=== PATIENT | female | born 1945 | race Caucasian/White ===

== ENCOUNTER 2017-11-06 15:12 | Emergency (ER) | payer MEDICARE, OTHER ==
--- NOTE | 2017-11-06 15:59 | CT ---
CT OF THE BRAIN WITHOUT CONTRAST; Date: 11/06/17 INDICATION: History of fall. COMPARISON: MRI of the brain dated 05/29/14. FINDINGS: No acute infarct, hemorrhage, or hydrocephalus is present. The septum pellucidum and third ventricle are midline. Skull and extracranial soft tissues are within normal limits. There is mucosal thickenin g within the paranasal sinuses. IMPRESSION: 1. No acute intracranial abnormality. 2. Mild paranasal sinus disease. POS: [facility]
--- NOTE | 2017-11-06 16:02 | RAD ---
SINGLE VIEW PELVIS: Date: 11/06/17 INDICATION: Fall with pelvic pain. FINDINGS: No comparisons of the pelvis or right hip available. No acute fracture or subluxation is evident. SI joints appear within normal limits. There is a 3.2 cm mixed sclerotic and lucent lesion seen involving the proximal right femoral metaphyseal region. This may reflect a small fibroosseous lesion. No definite aggressive features are noted. IMPRESSION: 1. No acute fracture or subluxation. 2. Well circumscribed mixed lucent sclerotic lesion in proximal femoral metaphysis may reflect a sma ll fibroosseous lesion. As a conservative measure, correlate for the clinical exam for any pain withi n this location. A follow-up bone scan may be helpful to evaluate bone turnover activity related with this lesion. If comparison radiographs of the pelvis or right hip are available, these may be helpfu l to document stability. POS: [facility]
--- NOTE | 2017-11-06 16:13 | RAD ---
LEFT HIP 2 VIEWS: Date: 11/06/17 HISTORY: Fell with injury to left hip. FINDINGS: The femoral head and neck appear intact. Left hemipelvis appears intact. IMPRESSION: No evidence of acute fracture. POS: [facility]
--- NOTE | 2017-11-06 16:14 | RAD ---
LEFT HUMERUS 2 VIEWS: Date: 11/06/17 HISTORY: Fell with injury to left shoulder. FINDINGS: Slightly comminuted fracture involving the humeral head and neck. Mid and distal humerus is intact. IMPRESSION: Fracture proximal humerus. POS: [facility]
--- NOTE | 2017-11-06 16:17 | RAD ---
LEFT SHOULDER 3 VIEWS: Date: 11/06/17 HISTORY: Trauma. COMPARISON: None. FINDINGS: There is a mildly comminuted fracture of the left humeral head/neck extending to lesser and greater t uberosities. There is displacement of the greater tuberosity over 1.0 cm. No angulation over 45 degre es. IMPRESSION: Near two part fracture of the proximal humerus with fracture extending to the lesser and greater tube rosities with over 1.0 cm displacement of the greater tuberosity. No significant abnormal angulation. POS: [facility]
[2017-11-06] MEDS ORDERED: Morphine 4 MG/ML VIAL ONE (17:30)
[2017-11-06] MEDS ORDERED: Ketorolac Tromethamine 30 MG/ML VIAL ONE (17:30)
== END 2017-11-06 17:51 | disposition home or self-care (01) ==
LOC: ERS 15:12
DX: S42.295A Other nondisplaced fracture of upper end of left humerus, initial encounter for closed fracture (principal); S00.03XA Contusion of scalp, initial encounter; S30.0XXA Contusion of lower back and pelvis, initial encounter; R22.2 Localized swelling, mass and lump, trunk; K21.9 Gastro-esophageal reflux disease without esophagitis; E78.5 Hyperlipidemia, unspecified; J44.9 Chronic obstructive pulmonary disease, unspecified; Z87.891 Personal history of nicotine dependence; Z79.82 Long term (current) use of aspirin; Z79.899 Other long term (current) drug therapy; W18.09XA Striking against other object with subsequent fall, initial encounter
CPT/HCPCS: 70450; 72170; 96374; 96375; J1885; J2270

== ENCOUNTER 2019-01-31 22:38 | Observation (INO) | payer MEDICARE, OTHER ==
[2019-01-31 23:13] LABS: #Eosinphils 0.1 thou/uL (0.0-0.7); #Lymphocytes 1.7 thou/uL (1.20-3.40); #Monocytes 0.4 thou/uL (0.11-0.59); #Neutrophils 8.3 thou/uL (1.40-6.50); %Basophils 0.1 % (0.0-1.0); %Eosinophils 0.7 % (0.0-10.0); %Lymphocytes 16.2 % (21.0-51.0); %Monocytes 3.6 % (0.0-10.0); %Neutrophils 79.4 % (42.0-75.0); Mean Corpuscular HGB CONC 32.4 g/dL (32.0-36.0); Mean Corpuscular Hemoglobin 30.3 pg (27.0-31.0); Mean Corpuscular Volume 93.4 fL (78.0-98.0); Mean Platelet Volume 7.2 fL (7.4-10.4); Platelet Count 355 thou/uL (130-400); RBC Distribution Width 13.3 % (11.5-14.5); Red Blood Cell (RBC) Count 4.62 mill/uL (4.20-5.40); White Blood Cell (WBC) Count 10.4 thou/uL (4.8-10.8)
[2019-01-31 23:32] LABS: ALT (SGPT) 22 U/L (8-55); AST (SGOT) 30 U/L (5-34); Albumin 3.7 g/dL (3.4-4.8); Alkaline Phosphatase 115 U/L (40-150); Anion Gap 14 mmol/L (10-20); BUN (Urea Nitrogen) 6 mg/dL (9.8-20.1); Bilirubin, Total 0.3 mg/dL (0.2-1.2); Calc. Creatinine Clearance 0 mL/min (70-130); Calcium 8.9 mg/dL (7.8-10.44); Carbon Dioxide 22 mmol/L (23-31); Chloride 102 mmol/L (98-107); Estimated GFR-MDRD 81; Globulin 3.1 g/dL (2.4-3.5); Glucose 109 mg/dL (83-110); Potassium 3.7 mmol/L (3.5-5.1); Protein, Total 6.8 g/dL (6.0-8.3); Sodium 134 mmol/L (136-145)
[2019-02-01] MEDS ORDERED: Acetaminophen 500 MG TAB ONE (01:17)
[2019-02-01 01:35] LABS: Bilirubin Negative (Negative); Blood, Urine Negative (Negative); Clarity CLEAR (Clear); Glucose, Urine (Dipstick) Negative (Negative); Leukocyte Moderate (Negative); Nitrite Negative (Negative); Protein, Urine (Dipstick) Negative (Neg-Trace); Specific Gravity, Urine 1.012 (1.002-1.036); pH, Urine 5.5 (5.0-9.0)
[2019-02-01 01:36] LABS: Bacteria/HPF None Seen HPF (None Seen); Hyaline Casts/LPF 0-3 HYALINE CAST LPF (0-3 Hyaline); Squamous Epithelial 0-3 HPF (0-3); WBC/HPF 21-50 HPF (0-3)
[2019-02-01] MEDS ORDERED: Sodium Chloride 0.45% 1,000 ML IV SCH (04:15)
[2019-02-01 04:56] VITALS: BMI 28.1
[2019-02-01] MEDS ORDERED: PROVENTIL INHALER 6.7 G (200 INHALATIONS) INH PRN (08:46)
[2019-02-01] MEDS ORDERED: Acetaminophen 325 MG TAB PO PRN (08:46)
[2019-02-01] MEDS ORDERED: Ondansetron ODT 4 MG TAB PO PRN (08:46)
[2019-02-01] MEDS ORDERED: hydrALAZINE 20 MG/ML VIAL SLOW IVP PRN (08:46)
[2019-02-01] MEDS ORDERED: Ondansetron PF 4 MG/2 ML Vial IVP PRN (08:46)
[2019-02-01] MEDS ORDERED: Diabetic Tussin 200 MG/10 ML UDCUP PO PRN (08:46)
[2019-02-01] MEDS ORDERED: Cepastat Lozenges 1 LOZ PO PRN (08:46)
--- NOTE | 2019-02-01 08:53 | RAD ---
PORTABLE AP CHEST: Date: 01/31/19 HISTORY: Chest pain. COMPARISON: 04/14/17. FINDINGS: Postsurgical changes related to median sternotomy and cardiac valve replacement again noted. Cardiac silhouette and pulmonary vasculature are within normal limits. Increased interstitial densities are a gain seen throughout the lungs suggesting chronic interstitial lung changes. There is no consolidatio n or pleural fluid seen. A remote fracture deformity of the left humeral neck is seen. No other inter christiano change. IMPRESSION: Chronic lung changes without evidence of an acute cardiopulmonary process. POS: [facility]
--- NOTE | 2019-02-01 09:12 | HP ---
PRIMARY CARE PHYSICIAN: Kamilah Morales MD CHIEF COMPLAINT: Generally not feeling well and fever. HISTORY OF PRESENT ILLNESS: Ms. Dawson is a pleasant 73-year-old female, who has a history of hypertension and previous aortic valve replacement. She says that about a week ago she started feeling tired and weak and generally not feeling well. She went to see her primary care physician, who diagnosed her with a urinary tract infection. She said at that time she was not having any dysuria or frequency, but just had kind of an odor to the urine and it was a bit cloudy. She also noted some nausea and decreased appetite. She was started on Macrobid and says that a couple of days later she started to feel better and in fact, on Thursday, she felt great, but then the following day on Thursday, she has had a temperature of 102.4. She was feeling some pressure about her head as well as some headache and her chest felt cold. She was told that since she has a prosthetic valve that she should not let her temperature get above 100 and due to these concerns, she came to the emergency room. In the ER, she was evaluated and found to have some persistent pyuria, but no significant fever and she is being placed in observation. REVIEW OF SYSTEMS: Essentially negative except for an occasional cough, but there is no shortness of breath. No nausea. No diarrhea. No vomiting. No sore throat. PAST MEDICAL HISTORY: Significant for aortic valve replacement, hyperlipidemia, hypertension, and COPD. PAST SURGICAL HISTORY: She has had right shoulder surgery, bilateral knee replacement, cholecystectomy, and tonsillectomy. ALLERGIES: ALLERGIES ARE TO AUGMENTIN, CODEINE, AND ULTRAM. FAMILY HISTORY: Significant for mother, who had a heart attack and father as well had coronary artery disease. Mother also had a stroke. SOCIAL HISTORY: She is . She is a former smoker. She occasionally drinks and she would like to be a full code. CURRENT MEDICATIONS: Include; 1. Albuterol q.4 hours as needed. 2. Aspirin 81 mg daily. 3. Diltiazem 240 mg daily. 4. Duloxetine 60 mg daily. 5. Breo Ellipta one puff q.p.m. 6. Macrobid 100 mg twice daily. 7. Prilosec 10 mg daily. 8. Requip 2 mg q.p.m. 9. Incruse Ellipta. PHYSICAL EXAMINATION: GENERAL: She is alert and oriented. She appears to be in no acute distress. She is well developed and well nourished. VITAL SIGNS: Blood pressure was 110/55, heart rate 78, respiratory rate of 20, and temperature is 98.5. HEENT: Her pupils are equal, round, and reactive. Extraocular muscles are intact. Her sclerae are anicteric. Throat; there is no erythema. No exudates. NECK: No adenopathy. No bruits. LUNGS: Essentially clear to auscultation. There is no wheezing. No rales. No rhonchi. CARDIOVASCULAR: She had a normal S1 and S2. She had a grade 2/6 systolic murmur. ABDOMEN: Obese. It is soft. It is nontender and nondistended. Positive for bowel sounds. No rebound. No guarding. EXTREMITIES: There is no clubbing or cyanosis. No edema. NEUROLOGICAL: The exam is nonfocal. LABORATORY RESULTS: Sodium 134, potassium 3.7, chloride 102, CO2 is 22, BUN is 6, creatinine 0.71, and glucose is 109. White blood cell count 10.4, hemoglobin 14, hematocrit is 43.2, and platelet count is 355. IMAGING DATA: Chest x-ray, in my reading, heart size is normal. There is some chronic interstitial change, but no discrete infiltrate or effusion. ASSESSMENT AND PLAN: 1. This is a pleasant 73-year-old female, who presents with malaise and fever. Most likely, this represents a viral syndrome. However, she could have an incomplete or partially-treated urinary tract infection. She will be monitored on Oncology. We will place her empirically on Levaquin, which should cover upper respiratory as well as urinary tract infections. Follow up on her cultures and hopefully if she is feeling better tomorrow and is still afebrile, she can likely be discharged home and to follow up on the culture results with Dr. Morales. 2. For hypertension, we will continue her usual home medications. 3. For chronic obstructive pulmonary disease, again continue home medicines as well as p.r.n. nebs. Job ID: [id number]
[2019-02-01] MEDS: Sodium Chloride 0.9% 1,000 ML IV SCH ×2 (09:37→22:35)
[2019-02-01] MEDS: Aspirin Chewable 81 MG TAB PO SCH (09:41)
[2019-02-01] MEDS: DULoxetine 60 MG CAP PO SCH (09:41)
[2019-02-01] MEDS: Ipratropium Bromide 2.5 ml Neb NEB SCH ×2 (13:43→19:14)
[2019-02-01] MEDS: Acetaminophen 325 MG TAB PO PRN (16:06)
[2019-02-01] MEDS: Mometasone/Formoterol 120 PUFF INHALER INH SCH (19:18)
[2019-02-01] MEDS ORDERED: rOPINIRole HCl 2 MG TAB PO SCH (21:00)
[2019-02-01] MEDS ORDERED: Non-Formulary Item 1 EACH (Fluticasone/Vilanterol [Breo Ellipta] 1 PUFF) IH SCH (21:00)
[2019-02-01] MEDS ORDERED: Non-Formulary Item 1 EACH (Umeclidinium Bromide [Incruse Ellipta] 1 PUFF) IH SCH (21:00)
[2019-02-02] MEDS: Acetaminophen 325 MG TAB PO PRN ×2 (00:18→08:54)
[2019-02-02] MEDS: Ipratropium Bromide 2.5 ml Neb NEB SCH ×3 (01:17→13:35)
[2019-02-02] MEDS: Mometasone/Formoterol 120 PUFF INHALER INH SCH (06:16)
[2019-02-02 06:45] LABS: #Basophils 0.1 thou/uL (0.0-0.2); #Eosinphils 0.2 thou/uL (0.0-0.7); #Lymphocytes 2.4 thou/uL (1.20-3.40); #Monocytes 0.4 thou/uL (0.11-0.59); #Neutrophils 7.4 thou/uL (1.40-6.50); %Basophils 0.6 % (0.0-1.0); %Eosinophils 1.8 % (0.0-10.0); %Lymphocytes 23.3 % (21.0-51.0); %Monocytes 3.6 % (0.0-10.0); %Neutrophils 70.7 % (42.0-75.0); Hemoglobin 12.2 g/dL (12.0-16.0); Mean Corpuscular HGB CONC 30.7 g/dL (32.0-36.0); Mean Corpuscular Hemoglobin 28.8 pg (27.0-31.0); Mean Corpuscular Volume 93.9 fL (78.0-98.0); Mean Platelet Volume 7.1 fL (7.4-10.4); Platelet Count 326 thou/uL (130-400); RBC Distribution Width 13.2 % (11.5-14.5); Red Blood Cell (RBC) Count 4.24 mill/uL (4.20-5.40); White Blood Cell (WBC) Count 10.5 thou/uL (4.8-10.8)
[2019-02-02 06:54] LABS: Anion Gap 10 mmol/L (10-20); BUN (Urea Nitrogen) Less than 4 mg/dL (9.8-20.1); Calc. Creatinine Clearance 92 mL/min (70-130); Calcium 8.6 mg/dL (7.8-10.44); Carbon Dioxide 25 mmol/L (23-31); Chloride 106 mmol/L (98-107); Estimated GFR-MDRD Greater than 90; Glucose 99 mg/dL (83-110); Potassium 3.1 mmol/L (3.5-5.1); Sodium 138 mmol/L (136-145)
[2019-02-02 08:41] VITALS: BP 118/57; TEMP 97.9
[2019-02-02] MEDS: DULoxetine 60 MG CAP PO SCH (08:54)
[2019-02-02] MEDS: Aspirin Chewable 81 MG TAB PO SCH (08:54)
[2019-02-02] MEDS ORDERED: Potassium Chloride 20 MEQ TAB PO SCH (11:00)
[2019-02-02] MEDS: Sodium Chloride 0.9% 1,000 ML IV SCH (12:00)
--- NOTE | 2019-02-02 15:02 | DIS ---
DATE OF ADMISSION: 02/01/2019 DATE OF DISCHARGE: 02/02/2019 PRIMARY CARE PHYSICIAN: Kamilah Morales MD DISCHARGE DIAGNOSES PRIMARY: 1. Urinary tract infection. 2. Suspected viral upper respiratory tract infection. SECONDARY DISCHARGE DIAGNOSES: History of chronic obstructive pulmonary disease, aortic valve replacement, dyslipidemia, and hypertension. DISCHARGE MEDICATIONS: Discharge medications remain the same as admission medication. The patient's antibiotic is changed from Macrobid to levofloxacin. She will take levofloxacin 500 mg p.o. daily for 5 more days and take Florastor once daily for 10 days with it. P.R.N. Zofran is also prescribed. PROCEDURES DONE IN THE HOSPITAL: Chest x-ray, which did not show any acute changes. CONSULTATIONS: None. CONDITION: At the time of discharge, stable and improved. PHYSICAL EXAMINATION: VITAL SIGNS: On the day of discharge; blood pressure 118/57, saturating 94% on room air, and temperature 97.9. GENERAL: No acute distress. Awake, alert, and oriented x3. CHEST: Clear to auscultation bilaterally. ABDOMEN: Soft, nontender, and nondistended. EXTREMITIES: Free of any cyanosis, clubbing, or edema. HEART: Rate and rhythm are regular. HISTORY OF PRESENTING ILLNESS AND HOSPITAL COURSE: Ms. Dawson is a 73-year-old pleasant female with past medical history as outlined above, who presented to the emergency room for complaints of fever, malaise, headache, and nausea. She was recently prescribed Macrobid when she was found to have a urinary tract infection in the outpatient setting. Upon presentation, she was hemodynamically stable. Chest x-ray was unremarkable. Blood work was unrevealing and within normal range. Her urine did have some pyuria, so she was admitted for possible partially treated urinary tract infection with or without viral upper respiratory tract infection. The patient was treated with IV levofloxacin and she got 2 doses in the hospital. Her urine culture and blood culture preliminary are negative so far. Her 1 out of 2 blood culture is growing coag-negative staph and enterococcus faecium. This is thought most likely secondary to contamination as the same sample is growing coagulase-negative Staphylococcus, which is normally a contaminant. At this time, the patient will be discharged on levofloxacin for a total of 7 days and will follow with primary care physician for the followup of the final results of the blood culture. She is instructed to come back to the hospital if her symptoms reoccur or she does not feel well. Currently, she is feeling somewhat better and is eager to go home. Job ID: [id number]
--- NOTE | 2019-02-05 09:27 | EKG ---
Test Reason : Blood Pressure : / mmHG Vent. Rate : 120 BPM Atrial Rate : 120 BPM P-R Int : 148 ms QRS Dur : 066 ms QT Int : 310 ms P-R-T Axes : 061 010 069 degrees QTc Int : 438 ms Sinus tachycardia Possible Left atrial enlargement Borderline ECG Confirmed by DIXIE BOOKER ([id number]), slot editor SAM MONET ([id number]) on 02/05/2019 9:26:29 AM Referred By: Confirmed By:DIXIE BOOKER
== END 2019-02-02 13:30 | disposition home or self-care (01) ==
LOC: ERS 22:38 → ONC 02-01 04:04
PROVIDERS: ADMIT Internal Medicine; ATTEND Internal Medicine
DX: N39.0 Urinary tract infection, site not specified (principal); E78.5 Hyperlipidemia, unspecified; J44.9 Chronic obstructive pulmonary disease, unspecified; Z87.891 Personal history of nicotine dependence; Z96.653 Presence of artificial knee joint, bilateral; Z95.2 Presence of prosthetic heart valve; Z90.89 Acquired absence of other organs; Z90.49 Acquired absence of other specified parts of digestive tract; Z88.1 Allergy status to other antibiotic agents; Z88.5 Allergy status to narcotic agent; Z88.8 Allergy status to other drugs, medicaments and biological substances; Z79.51 Long term (current) use of inhaled steroids; Z79.82 Long term (current) use of aspirin; Z79.2 Long term (current) use of antibiotics; Z79.899 Other long term (current) drug therapy
CPT/HCPCS: 36415; 71045; 80048; 80053; 81003; 81015; 83605; 84484; 85025; 87040; 87077; 87086; 87149; 87186; 87804; 93005; 94640; 96361; 96365; 96366; 96367; G0378; J1956

== ENCOUNTER 2019-02-04 21:35 | Inpatient (IN) | payer MEDICARE, OTHER ==
--- NOTE | 2019-02-04 22:20 | RAD ---
AP VIEW CHEST: 02/04/19 HISTORY: Fever. AP view chest is obtained on 02/04/19. COMPARISON: Comparison made to previous exam from 01/31/19. Sternotomy wires seen. Diffuse chronic interstitial changes seen throughout the lung parenchyma. Some areas of apical pleura l thickening seen on the right. No evidence of acute intrathoracic changes or abnormalities seen. Old healed proximal left humeral fracture deformity is present. A prosthetic cardiac valve is seen. IMPRESSION: No acute intrathoracic abnormality seen. POS: [facility]
[2019-02-04 22:21] LABS: Hemoglobin 12.5 g/dL (12.0-16.0); Mean Corpuscular HGB CONC 33.2 g/dL (32.0-36.0); Mean Corpuscular Hemoglobin 31.1 pg (27.0-31.0); Mean Corpuscular Volume 93.7 fL (78.0-98.0); Mean Platelet Volume 6.9 fL (7.4-10.4); Platelet Count 391 thou/uL (130-400); RBC Distribution Width 13.5 % (11.5-14.5); Red Blood Cell (RBC) Count 4.03 mill/uL (4.20-5.40)
[2019-02-04 22:41] LABS: Band 20 % (5-11); Eosinophils 1 % (0-10); Lymphocytes 6 % (21-51); MDiff Complete? YES; Monocytes 1 % (0-10); Neutrophil 72 % (42-75)
[2019-02-04 22:42] LABS: ALT (SGPT) 42 U/L (8-55); AST (SGOT) 63 U/L (5-34); Albumin 3.2 g/dL (3.4-4.8); Alkaline Phosphatase 157 U/L (40-150); Anion Gap 13 mmol/L (10-20); BUN (Urea Nitrogen) 12 mg/dL (9.8-20.1); Bilirubin, Total 0.4 mg/dL (0.2-1.2); Calc. Creatinine Clearance 0 mL/min (70-130); Calcium 8.5 mg/dL (7.8-10.44); Carbon Dioxide 24 mmol/L (23-31); Chloride 100 mmol/L (98-107); Estimated GFR-MDRD 62; Globulin 3.5 g/dL (2.4-3.5); Glucose 116 mg/dL (83-110); Potassium 3.2 mmol/L (3.5-5.1); Protein, Total 6.7 g/dL (6.0-8.3); Sodium 134 mmol/L (136-145)
[2019-02-04] MEDS ORDERED: Piperacillin/Tazobactam 4.5 GM VIAL ONE (23:22)
[2019-02-04 23:25] LABS: Bilirubin Small (Negative); Blood, Urine Negative (Negative); Clarity CLOUDY (Clear); Glucose, Urine (Dipstick) Negative (Negative); Leukocyte Moderate (Negative); Nitrite Negative (Negative); Protein, Urine (Dipstick) Trace mg/dL (Neg-Trace); Specific Gravity, Urine 1.016 (1.002-1.036); Urobilinogen 0.2 mg/dL (0.2-1.0); pH, Urine 5.5 (5.0-9.0)
[2019-02-04 23:28] LABS: Pathc Cast-AUWi Flag 6.66 (0-2.49)
[2019-02-04 23:37] LABS: Bacteria/HPF Rare-Few HPF (None Seen); Hyaline Casts/LPF 0-3 HYALINE CAST LPF (0-3 Hyaline); Manual Microscopic Reviewed? No Path Casts Seen; RBC/HPF 0-3 HPF (0-3); Transitional Epithelial 0-3 HPF (0-3)
[2019-02-04] MEDS ORDERED: NS 0.9% w/ 40 MEQ KCL 1,000 ML IV SCH (23:45)
[2019-02-05] MEDS ORDERED: Acetaminophen 325 MG TAB ONE (01:19)
[2019-02-05 02:06] VITALS: BMI 25.7
[2019-02-05] MEDS ORDERED: PROVENTIL INHALER 6.7 G (200 INHALATIONS) INH PRN (02:36)
[2019-02-05 02:37] LABS: Lactic Acid 3.3 mmol/L (0.5-2.2)
[2019-02-05] MEDS ORDERED: Ondansetron ODT 4 MG TAB PO PRN (02:37)
[2019-02-05] MEDS ORDERED: Acetaminophen 325 MG TAB PO PRN (02:38)
[2019-02-05] MEDS ORDERED: rOPINIRole HCl 2 MG TAB PO SCH (02:45)
[2019-02-05] MEDS ORDERED: Prevnar 13-Val Conj/PF 0.5 ML SYRINGE IM ONE (03:00)
[2019-02-05] MEDS: Gentamicin Sulfate 300 MG in Sodium Chloride 0.9% 100 ML IVPB SCH (03:32)
--- NOTE | 2019-02-05 04:04 | HP ---
CHIEF COMPLAINT: Fever. HISTORY OF PRESENT ILLNESS: This patient is a 73-year-old female, who was recently seen at this facility. Initially, she came on 02/01 with fever and generally not feeling well. She went to see her primary care physician and was diagnosed with urinary tract infection and was placed on Macrobid. She started feeling better, but subsequently developed a temperature of 102.4 and was feeling some pressure in her head along with some headache. The patient has been told by her intervention manager that she should come to the hospital anytime she has a significant fever. Therefore, she presented to the emergency department. She had some persistent evidence of urinary tract infection and was placed on observation on IV antibiotics. Blood cultures were obtained from the emergency department, one of which was negative and the other of which grew a coagulase negative Staphylococcus as well as an Enterococcus, was felt to be likely contaminant as well. The patient remained afebrile and her white count remained at 10.5 with a normal differential. Therefore, the patient was felt to be stable for discharge to home. She was discharged on p.o. Levaquin, which she has been taking. However, last night, the patient developed significant fever, chills, nausea, and vomiting, along with her headache, and so she presented back to the hospital today after she slept most of the day. She denies any other specific symptoms consistent with infection. REVIEW OF SYSTEMS: The patient notes that she does have a little bit of urinary urgency, which she has not had in the past. She feels a little pressure in her head. She reports intermittent headaches and chronic pain in her neck, which she associates to arthritic-type symptoms, but no new stiffness. All other systems were reviewed and all pertinent positives and negatives noted in the history of present illness. PAST MEDICAL HISTORY: Notable for prosthetic aortic valve, hyperlipidemia, hypertension, COPD. PAST SURGICAL HISTORY: Aortic valve replacement in 2013, right shoulder surgery, bilateral knee replacements, cholecystectomy, tonsillectomy. FAMILY HISTORY: Mother had a heart attack. Father also had coronary artery disease. Her mother also had a stroke. SOCIAL HISTORY: The patient is . She is a former smoker. Occasionally drinks. She is full code. is her surrogate decision maker. ALLERGIES: AUGMENTIN, CODEINE, ULTRAM. CURRENT MEDICATIONS: 1. Levaquin 500 mg daily. 2. Zofran p.r.n. 3. Florastor 250 daily. 4. Requip 2 mg at bedtime. 5. Aspirin 81 mg daily. 6. Albuterol HFA p.r.n. 7. Breo Ellipta one inhalation every evening. 8. Incruse Ellipta one inhalation every evening. 9. Duloxetine 60 mg daily. 10. Omeprazole 10 mg daily. 11. Diltiazem 240 mg daily. PHYSICAL EXAMINATION: VITAL SIGNS: Temperature 99.2, pulse 110, respirations 20, O2 saturation 98% on room air, blood pressure 95/42 up to 118/57. GENERAL APPEARANCE: Age-appropriate female, in no distress. She is very pleasant, awake, alert, oriented, cooperative. HEENT: PERRL. No OP lesions. Denture is in place. NECK: Supple and symmetric without lymphadenopathy, JVD, or carotid bruits. HEART: Regular with loud 2/6 murmur at the left upper sternal border and into the apex. LUNGS: Clear to auscultation bilaterally with good chest wall expansion and air exchange. ABDOMEN: Soft, nontender, and nondistended. Positive bowel sounds. No masses. No organomegaly. EXTREMITIES: No cyanosis, clubbing, or edema. SKIN: Warm and dry with no lesions or rashes. NEUROLOGIC: The patient appears grossly intact. Moving all extremities spontaneously with no evidence of focal deficits. PSYCH: The patient has normal affect and behavior. LABORATORY DATA: White count 24,000, hemoglobin 12.5, platelets 391, 72 segs, 20 bands, 6 lymphocytes. Sodium 134, potassium 3.2, chloride 100, CO2 is 24, BUN 12, creatinine 0.9, glucose 116, lactic acid 3.6, calcium 8.5. AST 63, alkaline phosphatase 157. Urinalysis; small urobilinogen, moderate leukocyte esterase, 0 to 2 red cells, greater than 50 white cells, 11 to 20 squamous epithelial cells, rare to few bacteria seen. Flu screen, negative. IMAGING STUDIES: Chest x-ray, negative. IMPRESSION AND PLAN: 1. Sepsis. The patient has tachycardia with systemic symptoms with nausea, vomiting, and white count of 24,000 consistent with sepsis. Source is not clear. Urine is not convincing for infection. Chest x-ray is clear and she has no other overwhelming symptoms to guide the potential source. She did recently have this Enterococcus avium on the blood culture, which was initially thought to be a contaminant. However, at this point, we do consider that as a true potential pathogens. We will continue the vancomycin, add the gentamicin, and continue with IV fluids and follow up on most recent blood cultures given her prosthetic aortic valve. We will obtain an echocardiogram, cannot completely rule out urinary tract as a potential source. She is having some urinary urgency, which is new for her. Pending her clinical course, may need imaging of the kidneys and collecting system. 2. History of bioprosthetic aortic valve, stable. 3. Hypertension. Continue with her usual home diltiazem dose. 4. History of restless legs syndrome. Continue on the 2 mg of Requip. 5. History of smoking history, it looks like some chronic obstructive pulmonary disease by history. We will continue with albuterol. Job ID: [id number]
[2019-02-05] MEDS: Ipratropium Bromide 2.5 ml Neb NEB SCH ×3 (07:27→18:52)
[2019-02-05] MEDS: Mometasone/Formoterol 120 PUFF INHALER INH SCH ×2 (07:29→19:08)
[2019-02-05] MEDS: Enoxaparin Sodium 40 MG/0.4 ML SYRINGE SC SCH (08:07)
[2019-02-05] MEDS: DULoxetine 60 MG CAP PO SCH (08:08)
[2019-02-05] MEDS: Saccharomyces boulardii 250 MG CAP PO SCH (08:08)
[2019-02-05] MEDS: Aspirin 81 mg Enteric Coated Tablet PO SCH (08:08)
[2019-02-05 09:22] LABS: #Eosinphils 0.1 thou/uL (0.0-0.7); #Monocytes 0.3 thou/uL (0.11-0.59); #Neutrophils 14.6 thou/uL (1.40-6.50); %Eosinophils 0.8 % (0.0-10.0); %Lymphocytes 6.3 % (21.0-51.0); %Monocytes 1.6 % (0.0-10.0); %Neutrophils 91.3 % (42.0-75.0); Hemoglobin 11.5 g/dL (12.0-16.0); Mean Corpuscular HGB CONC 32.4 g/dL (32.0-36.0); Mean Corpuscular Hemoglobin 30.8 pg (27.0-31.0); Mean Corpuscular Volume 95.2 fL (78.0-98.0); Platelet Count 315 thou/uL (130-400); RBC Distribution Width 13.5 % (11.5-14.5); Red Blood Cell (RBC) Count 3.75 mill/uL (4.20-5.40)
[2019-02-05 09:43] LABS: Anion Gap 10 mmol/L (10-20); BUN (Urea Nitrogen) 12 mg/dL (9.8-20.1); Calc. Creatinine Clearance 75 mL/min (70-130); Calcium 7.5 mg/dL (7.8-10.44); Carbon Dioxide 21 mmol/L (23-31); Chloride 109 mmol/L (98-107); Estimated GFR-MDRD 84; Glucose 105 mg/dL (83-110); Potassium 3.8 mmol/L (3.5-5.1); Sodium 136 mmol/L (136-145)
[2019-02-05] MEDS ORDERED: ISOVUE-370 76%-LOCM 1 ML ONE (13:00)
--- NOTE | 2019-02-05 16:11 | CON ---
DATE OF CONSULTATION: HISTORY OF PRESENT ILLNESS: Shila Dawson is a 73-year-old woman with a history of aortic valve replacement, who presents with fevers and chills. The patient was seen in 2012 and was diagnosed with severe aortic stenosis. The patient subsequently underwent aortic valve replacement. She re-presented in 2013 with fevers and chills. She underwent a JOSEPH which revealed no evidence of any vegetations. The patient subsequently has been doing well until she presented again with recurrent fevers and chills. She has had extremely high temperature of up to 102. The patient went to the Emergency Room and was placed on antibiotics. She was sent home and continued to have fevers and chills. She was admitted for further evaluation. PAST MEDICAL HISTORY: 1. Status post aortic valve replacement. 2. COPD. 3. Hypercholesterolemia. SURGERIES: Aortic valve replacement, cholecystectomy, tonsillectomy, shoulder surgery,and knee surgery. SOCIAL HISTORY: Former smoker. FAMILY HISTORY: No strong family history of heart disease. ALLERGIES: CODEINE AND AUGMENTIN. MEDICATIONS ON ADMISSION: 1. Aspirin 81 daily. 2. Cardizem 240 daily. 3. Prilosec 10 daily. 4. Requip 2 mg daily. 5. Nebulizers. REVIEW OF SYSTEMS: Ten point system otherwise unremarkable. PHYSICAL EXAMINATION: GENERAL: Anxious woman in mild distress. VITAL SIGNS: Blood pressure of 102/59, heart rate 110. NECK: Showed no jugular venous distention. LUNGS: Clear to auscultation. HEART: Regular rate and rhythm. Normal S1, S2. 1/6 systolic murmur. ABDOMEN: Nondistended. EXTREMITIES: Showed no edema. VASCULAR: Radial pulses 2+. LABORATORY DATA: White blood cell count 16.0, hemoglobin 11.5, hematocrit was 35.7, platelets 315. Sodium was 136, potassium 3.8, chloride 109, bicarbonate 21, BUN 12, creatinine 0.69, glucose 105. Her EKG revealed normal sinus rhythm, normal ECG. IMPRESSION: 1. Sepsis. 2. History of aortic valve replacement. 3. Chronic obstructive pulmonary disease. 4. History of hypertension. This patient presents with recurrent fevers and chills. She had a recent blood culture that showed Staphylococcus \enterococcus avium. This patient presents with sepsis. She has been on multiple antibiotics. I would be concerned that she could have culture negative endocarditis. Her echocardiogram did not reveal evidence of vegetation. We would recommend consultation with Infectious Disease. We will follow this patient with you through her hospitalization. Job ID: [id number] MTDD
--- NOTE | 2019-02-05 17:07 | PRG ---
DATE OF SERVICE: 02/05/2019 SUBJECTIVE: The patient is a 73-year-old female with past medical history significant for prosthetic aortic valve replacement in 2012, hyperlipidemia, hypertension, and COPD, who presents with recurrent fever, headache, and body aches. The patient has been admitted with sepsis, with one culture positive for coagulase-negative Staph as well as Enterococcus, which is likely to felt to be a contaminant. The patient's white count has trended down with IV antibiotics, she continues to complain of mild cough. She denies any chest pain or shortness of breath. She does complain of mild nausea. She continues to have body aches. OBJECTIVE: VITAL SIGNS: Temperature 98.2, pulse is 111, respirations are 19, O2 saturation is 93% on room air. GENERAL: The patient is in no acute distress. Resting comfortably in bed. HEENT: Head is normocephalic, atraumatic. Her mucous membranes are moist. NECK: No JVD. No carotid bruits. No lymphadenopathy. CV: S1, S2. No appreciable murmur. Regular rhythm. Mildly tachycardic. LUNGS: Regular respiratory rate and pattern, no audible crackles, wheezes, or rhonchi. ABDOMEN: Soft. Positive bowel sounds. EXTREMITIES: No edema. +2 DP pulses bilaterally. SKIN: Warm and dry with no rashes or abrasions. NEUROLOGIC: The patient is alert, awake, and oriented. Cranial nerves 2 through 12 intact. Nonfocal. LABORATORY DATA: White blood cell count 16, hemoglobin 11.5, hematocrit 35.7. Sodium 136, potassium 3.8, chloride 109, carbon dioxide 21, creatinine 0.69. ASSESSMENT: 1. Sepsis. The source remains unclear at this time. Blood and urine cultures are pending. 2. Transcatheter aortic valve replacement with prosthetic valve in 2012. 3. Chronic obstructive pulmonary disease. 4. Hypertension. 5. Restless legs syndrome. PLAN: Dr. Beth has consulted and appreciated his input. Echocardiogram performed this hospitalization did not reveal any evidence of vegetation. We will obtain Infectious Disease consult with Dr. Metz and await recommendations. For now, we will continue with vancomycin and gentamicin. Continue IV fluids and supportive care. Care discussed with Dr. Jacome, who agrees with above. Job ID: [id number] [facility]
[2019-02-05] MEDS: rOPINIRole HCl 2 MG TAB PO SCH (21:06)
[2019-02-05] MEDS: HYDROcodone/Acetaminophen 7.5/325 mg Tablet PO PRN (21:06)
--- NOTE | 2019-02-05 21:49 | RAD ---
AP VIEW CHEST: 02/05/19 HISTORY: Shortness of breath. AP view chest obtained on 01/26/19. Comparison made to previous exam from 02/04/19. AP view chest demonstrates sternotomy wires seen. A prosthetic aortic valve is seen. Pulmonary vascular congestion seen. There are prominent reticulonodular markings throughout the lungs . This appears to be slightly more prominent than on the previous exam from one day earlier. IMPRESSION: Increased reticulonodular markings throughout the lungs. There may be some component of interstitial edema. POS: [facility]
[2019-02-05] MEDS ORDERED: Sodium Chloride 0.9% 1,000 ML IV SCH ×2 (22:00)
--- NOTE | 2019-02-05 22:01 | PDOC.EVN ---
Event Note - Event Note Event Note: RN called due to persistent tachycardia - HR >130s. EKG HR [address] Started gentle IV hydration. CXR - ?infiltrate vs edema. Will get CT to r/o PE
[2019-02-05 22:06] LABS: Anion Gap 11 mmol/L (10-20); BUN (Urea Nitrogen) 9 mg/dL (9.8-20.1); Calc. Creatinine Clearance 80 mL/min (70-130); Calcium 8.2 mg/dL (7.8-10.44); Carbon Dioxide 23 mmol/L (23-31); Chloride 103 mmol/L (98-107); Estimated GFR-MDRD 90; Glucose 102 mg/dL (83-110); Magnesium 1.4 mg/dL (1.6-2.6); Potassium 3.5 mmol/L (3.5-5.1); Sodium 133 mmol/L (136-145)
[2019-02-05 22:09] LABS: Hemoglobin 11.8 g/dL (12.0-16.0); Mean Corpuscular HGB CONC 33.4 g/dL (32.0-36.0); Mean Corpuscular Hemoglobin 31.5 pg (27.0-31.0); Mean Corpuscular Volume 94.2 fL (78.0-98.0); Mean Platelet Volume 6.9 fL (7.4-10.4); Platelet Count 335 thou/uL (130-400); RBC Distribution Width 13.5 % (11.5-14.5); Red Blood Cell (RBC) Count 3.74 mill/uL (4.20-5.40); White Blood Cell (WBC) Count 14.4 thou/uL (4.8-10.8)
[2019-02-05 22:11] LABS: Band 27 % (5-11); Lymphocytes 12 % (21-51); MDiff Complete? YES; Monocytes 3 % (0-10); Neutrophil 58 % (42-75)
--- NOTE | 2019-02-05 22:46 | CT ---
CONTRAST ENHANCED CTA CHEST: 02/05/19 HISTORY: Persistent tachycardia. Evaluate for pulmonary emboli. Contrast enhanced CTA of the chest is performed. 2D and 3D reconstructed images performed on an [employer] 3D workstation. CTA images demonstrate small bilateral pleural effusions. Prominent lung interstitial fibrotic change s seen throughout the upper and lower lobes. There is some thickening seen in the distal esophagus co ncerning for esophagitis. A sliding type hiatal hernia is present. There is a prosthetic aortic valve in place. No evidence of filling defects seen in the pulmonary arteries to suggest pulmonary emboli. There does appear to be some paratracheal and subcarinal lymphadenopathy. IMPRESSION: 1. Small bilateral pleural effusions. 2. Mediastinal lymphadenopathy. POS: [facility]
[2019-02-05] MEDS: Sodium Chloride 0.9% 500 ML IV SCH (22:55)
[2019-02-05] MEDS ORDERED: Vancomycin HCl 1 GM in Premix Bag 1 BAG IVPB SCH (23:59)
[2019-02-06] MEDS: Ipratropium Bromide 2.5 ml Neb NEB SCH ×5 (00:38→23:28)
[2019-02-06] MEDS: Gentamicin Sulfate 300 MG in Sodium Chloride 0.9% 100 ML IVPB SCH (05:05)
[2019-02-06 05:24] LABS: #Eosinphils 0.6 thou/uL (0.0-0.7); #Lymphocytes 2.6 thou/uL (1.20-3.40); #Monocytes 0.5 thou/uL (0.11-0.59); #Neutrophils 9.9 thou/uL (1.40-6.50); %Basophils 0.3 % (0.0-1.0); %Eosinophils 4.1 % (0.0-10.0); %Lymphocytes 18.8 % (21.0-51.0); %Monocytes 3.6 % (0.0-10.0); %Neutrophils 73.2 % (42.0-75.0); Hemoglobin 11.7 g/dL (12.0-16.0); Mean Corpuscular HGB CONC 31.9 g/dL (32.0-36.0); Mean Corpuscular Hemoglobin 30.6 pg (27.0-31.0); Mean Corpuscular Volume 95.6 fL (78.0-98.0); Mean Platelet Volume 7.1 fL (7.4-10.4); Platelet Count 334 thou/uL (130-400); RBC Distribution Width 13.6 % (11.5-14.5); Red Blood Cell (RBC) Count 3.83 mill/uL (4.20-5.40); White Blood Cell (WBC) Count 13.6 thou/uL (4.8-10.8)
[2019-02-06 05:55] LABS: Anion Gap 13 mmol/L (10-20); BUN (Urea Nitrogen) 8 mg/dL (9.8-20.1); Calc. Creatinine Clearance 92 mL/min (70-130); Calcium 8.3 mg/dL (7.8-10.44); Carbon Dioxide 20 mmol/L (23-31); Chloride 105 mmol/L (98-107); Estimated GFR-MDRD Greater than 90; Glucose 92 mg/dL (83-110); Potassium 3.6 mmol/L (3.5-5.1); Sodium 134 mmol/L (136-145)
[2019-02-06] MEDS: Mometasone/Formoterol 120 PUFF INHALER INH SCH ×2 (07:24→19:01)
[2019-02-06] MEDS: DULoxetine 60 MG CAP PO SCH (09:00)
[2019-02-06] MEDS: Aspirin 81 mg Enteric Coated Tablet PO SCH (09:00)
[2019-02-06] MEDS: Enoxaparin Sodium 40 MG/0.4 ML SYRINGE SC SCH (09:00)
[2019-02-06] MEDS: Sodium Chloride 0.9% 500 ML IV SCH ×2 (09:00→17:39)
[2019-02-06] MEDS: Saccharomyces boulardii 250 MG CAP PO SCH (09:01)
[2019-02-06] MEDS ORDERED: Fluconazole 100 MG TAB PO SCH (11:40)
--- NOTE | 2019-02-06 13:03 | PRG ---
DATE OF SERVICE: 02/06/2019 SUBJECTIVE: The patient was seen and examined at the bedside. Her is present in the room during my visit. She feels tired. She does not have much appetite. She noticed increased shortness of breath for the last few days with some increased amount of seeing clear phlegm. OBJECTIVE: VITAL SIGNS: Blood pressure is 113/53, pulse is 101, temperature is 98.4, respiratory rate is 93% on 2 L by nasal cannula. GENERAL: She looks tired and sick. HEENT: Her eyes are PERRLA. Sclerae are nonicteric. Oral mucosa is covered with thrush. NECK: Supple. LUNGS: Few crackles at the right base. HEART: S1 and S2. Slightly tachycardic. No S3. No S4. There is a systolic murmur at the aortic valve area in the right upper and sternal border. ABDOMEN: Soft and nontender. Bowel sounds are present. No organomegaly. EXTREMITIES: No clubbing, cyanosis, or edema. NEUROLOGICAL: She follows my commands. She moves all four extremities. There is no any motor or sensory deficits present. Cranial nerves are intact. LABORATORY DATA: Labs showed white count of 13.6, hemoglobin 11.7, hematocrit 36.6, platelet count is 334,000, bands 27 from yesterday. Chemistry; sodium of 134, potassium 3.6, chloride 105, CO2 of 20, BUN 8, creatinine 0.58, glucose 92, calcium 8.3. BNP was 345.9 yesterday. First set of troponin is 0.034. Magnesium was 1.4. DIAGNOSTIC DATA: Chest x-ray showed, this is from last night, increased reticular nodular marking throughout the lungs with possible some interstitial edema. A CT angiogram showed small bilateral pleural effusions and mediastinal lymphadenopathy. Echocardiogram showed LVEF of 55% to 60%, normal size left atrium, normal left ventricle in size, normal functioning bioprosthetic valve in aortic position, mild mitral regurgitation, and mild tricuspid regurgitation. IMPRESSION: 1. Sepsis the source is not clear. She was treated it with antibiotic prior to this admission for urinary tract infection and she had culture positive for enterococcus avium and Staphylococcus, which was probably contaminant. The patient is on vancomycin and gentamicin. There was some suspicion of possible endocarditis. ID consultants to see the patient today. 2. History of bioprosthetic aortic valve, stable. 3. Hypertension. 4. History of restless legs syndrome. 5. History of smoking. 6. Chronic obstructive pulmonary disease. PLAN: As mentioned above, continue IV antibiotics. ID consult with Dr. Metz. Serial CBCs. Her urine look suspicious for infection, but urine culture preliminary is negative. We will continue DVT prophylaxis with Lovenox and SCDs. Job ID: [id number]
[2019-02-06] MEDS ORDERED: Iopamidol 370 76% 100 ML VIAL ONE (13:07)
[2019-02-06] MEDS: HYDROcodone/Acetaminophen 7.5/325 mg Tablet PO PRN ×2 (16:11→20:07)
[2019-02-06 18:01] LABS: Troponin I 0.015 ng/mL (< 0.028)
--- NOTE | 2019-02-06 18:57 | CT ---
CONTRAST ENHANCED CT OF THE ABDOMEN AND PELVIS: History: Fever of unknown origin. Technique: Contrast enhanced images of the abdomen and pelvis obtained after administration of IV and oral contrast. FINDINGS: Small bilateral pleural effusions seen. There appears to be some areas of increased interstitial mellissa ings compatible with scarring in both lung bases. The liver and spleen are unremarkable. The gallbladder has been surgically removed. The pancreas is u nremarkable. Adrenal glands are unremarkable. Areas of cortical thinning seen in the upper pole of the right kidney. No evidence of hydronephrosis is seen. No evidence of periaortic lymphadenopathy is seen. Atherosclerotic calcifications seen in the infrarenal abdominal aorta. No dilated loops of small bowel is seen. A moderate amount of stool is seen in the colon. The appendi x definitively is not visualized. Mid and lower lumbar disc space height loss with changes of spondylosis seen. No definite evidence of pelvic masses or lesions seen. A small sliding type hiatal hernia is present. IMPRESSION: Small bilateral pleural effusions. POS: [facility]
[2019-02-06] MEDS: rOPINIRole HCl 2 MG TAB PO SCH (20:07)
[2019-02-06 21:20] LABS: Troponin I 0.015 ng/mL (< 0.028)
--- NOTE | 2019-02-07 06:07 | CON ---
DATE OF CONSULTATION: 02/06/2019 REASON FOR CONSULTATION: Possible sepsis. HISTORY OF PRESENT ILLNESS: Ms. Dawson is a 73-year-old patient who has a history of pulmonary fibrosis/COPD as well as severe aortic stenosis diagnosed in 2012, who underwent bioprosthetic valve replacement that year. In 2013, she was admitted because of fever. Two sets of blood cultures were negative. A transesophageal echocardiogram revealed a ruptured chordae tendineae, but no vegetations along any of the valves. In 2014, she presented with chest discomfort with pleuritic chest pain, mild shortness of breath, as well as cough. She had a CT angio which showed right apex patchy opacity and right basilar opacity as well as left basilar infiltration. She was given empiric antimicrobial therapy and she was discharged on levofloxacin, ropinirole, Breo Ellipta, Flovent, amitriptyline, and albuterol. In 2016, she presented with shortness of breath. She was given antimicrobial therapy and corticosteroids. She did have headaches, which were managed with Depakote and NSAIDs and she was discharged on again levofloxacin and pretty much the same medications as previously noted except for the Depakote that was added to the regimen and a prednisone taper. In January 2019, she presented with fever, headaches, general malaise, and nausea. She had developed some perception of change in the color of her urine, although she did not have any dysuria. She also had general malaise. She had been given Macrobid which she took and initially felt improvement at least in the characteristics of the urine appearance. Subsequently, she developed fever of 102, was given levofloxacin. Cultures have been negative. Blood cultures had Enterococcus avium and coagulase-negative Staphylococcus, which was felt to represent a contaminant, and she was discharged on levofloxacin for 7 days. After discharge, she developed subjective general malaise and fever and was readmitted. She did have headaches associated with it. Physical examination on admission with a temperature 99.5, O2 saturation 95%, pulse 108, BP 102/48. She did not appear in distress and was pain-free when initially seen. Overall exam with clear breath sounds. The heart examination was normal and the abdomen was soft and nontender. The initial lab data with a white cell count of 24,000, hemoglobin 12.5, and platelets 391 with 72% neutrophils, 20% bands, 6% lymphocytes. Chemistry with a sodium 134 , potassium 3.2, creatinine 0.9, AST 63, alkaline phosphatase 157, albumin 3.2. Lactic acid was 3.6. Urinalysis with greater than 50 wbc's. Thus far, microbiology has demonstrated no growth in the urine sample at 12 hours. The influenza A and B was negative. Two sets of blood cultures thus far no growth to date. Ms. Dawson is awake. She does not feel back to baseline. She still has some mild amount of headaches intermittently. No visual symptoms. A little bit of sore throat. No dental pain. No back pain. Not much in terms of coughing episodes at this time. No chest pain. No abdominal pain and no diarrhea. She denies any dysuria. She has chronic pain in the right and left knees, which is a chronic finding and associated with failure of previous arthroplasty sites. No other joint symptoms are noted at this time. No neurological symptoms described by the patient. PAST MEDICAL HISTORY: Includes pulmonary fibrosis, COPD, aortic stenosis with prosthetic valve replacement which was a tissue valve in 2012, history of osteoarthrosis with bilateral knee replacements and right shoulder replacement, cholecystectomy, and tonsillectomy. SOCIAL HISTORY: Drinks weekly. She has a former history of smoking, quit about 10 years before. ALLERGIES: AUGMENTIN WITH RASH; CODEINE, GASTROINTESTINAL SIDE EFFECTS; AND ULTRAM. FAMILY HISTORY: Noncontributory. CURRENT MEDICATIONS: List includes: 1. Tylenol. 2. [place]. 3. Proventil. 4. Ecotrin. 5. Cardizem. 6. Cymbalta. 7. Lovenox. 8. Diflucan. 9. Gentamicin given intravenously. 10. Pantoprazole. 11. Requip. 12. Saccharomyces and vancomycin. PHYSICAL EXAMINATION: VITAL SIGNS: Temperature max 98.6, blood pressure 113/53, pulse 96 to 101, respirations 18, and O2 saturation 92% to 96%. SKIN: The patient has a peripheral IV access. She is voiding in the toilet. No skin lesions are noted. No lymphadenopathy. HEENT: Ocular movements conjugate. The pupils are equal. Oral cavity is not remarkable. NECK: Supple. LUNGS: Faint basilar crackles. HEART: S1, S2. Regular rate without obvious murmurs. ABDOMEN: Soft, not distended or tender. No ascites. No bladder distention. MUSCULOSKELETAL: No joint inflammatory activity. Moves extremities equally with limitations imposed by chronic pain in the right and left knee arthroplasty sites. NEUROLOGIC: Cognitive function appears to be intact. LATEST LABORATORY DATA: White cell count is down to 13.6, hemoglobin 11.7, platelets 334, 73% neutrophils. Sodium 133, creatinine 0.64. Alkaline phosphatase 157 albumin 3.2. Microbiology as discussed above. ASSESSMENT: 1. History of pulmonary fibrosis and chronic obstructive pulmonary disease. 2. Aortic stenosis with aortic valve replacement about 6 years ago with a tissue valve. 3. Abnormal urinalysis, recently treated with Macrodantin, then development of fever, admitted and treated for presumption of pneumonia with levofloxacin and now persistence of fever with more treatment failure and the left shift with bandemia. DISCUSSION: Evidently in a patient with an aortic valve replacement, the concern with prosthetic valve endocarditis is present, but her cultures have been negative and the transthoracic echocardiogram did not show any vegetation. Transthoracic echos have less than optimal sensitivity and depending on the clinical course, a JOSEPH may be needed to reevaluate this if we do not find any other reason for the clinical changes. In terms of the differential diagnosis other than endocarditis with pulmonary infection, an intraabdominal inflammatory process that is not disclosed and pyelonephritis with obstruction were the main concerns. infectious inflammatory processes including vasculitis or other autoimmune phenomenon or malignancy like appearance may have to be considered depending on clinical progress. At this point, we will evaluate a CT of abdomen and pelvis with contrast to see if she has any obstructive lesion in the urinary tract or other intraabdominal inflammatory process including the possibility of a liver abscess. Continue monitoring blood cultures and then decide if she is going to need a JOSEPH or not. Bone and joint inflammatory process is not apparent at this time. Infection in the left knee arthroplasty site is not completely ruled out. It does not appear to be likely a [employer] infection, but in view of the chronic headaches it may have to be considered depending on the progress, but it appears that the headaches are due to temperature elevation. Job ID: [id number] [facility]
[2019-02-07] MEDS: Sodium Chloride 0.9% 500 ML IV SCH ×2 (06:20→21:43)
[2019-02-07] MEDS: Ipratropium Bromide 2.5 ml Neb NEB SCH ×4 (08:12→23:58)
[2019-02-07] MEDS: Mometasone/Formoterol 120 PUFF INHALER INH SCH (08:12)
[2019-02-07] MEDS: DULoxetine 60 MG CAP PO SCH (09:23)
[2019-02-07] MEDS: Aspirin 81 mg Enteric Coated Tablet PO SCH (09:23)
[2019-02-07] MEDS: Enoxaparin Sodium 40 MG/0.4 ML SYRINGE SC SCH (09:23)
[2019-02-07] MEDS: Fluconazole 100 MG TAB PO SCH (09:24)
[2019-02-07] MEDS: HYDROcodone/Acetaminophen 7.5/325 mg Tablet PO PRN ×2 (09:24→21:43)
[2019-02-07] MEDS: Saccharomyces boulardii 250 MG CAP PO SCH (09:24)
--- NOTE | 2019-02-07 10:37 | PRG ---
DATE OF SERVICE: 02/07/2019 SUBJECTIVE: She had a little bit of coughing spells, but not persistent. The thing that bothers her most is the right shoulder and both knees. For some reason, the right shoulder has been hurting more than usual lately. The urine is not bothering her. She has no diarrhea. OBJECTIVE: VITAL SIGNS: With a T-max of 98.2, blood pressure 100/50, pulse 83, respirations 16, and O2 saturation 92%. GENERAL: Awake, alert, a little bit tachypneic, and oriented. LUNGS: With area of focal inspiratory crackles in the right base. HEART: S1 and S2 without obvious murmurs. ABDOMEN: Soft and not distended. EXTREMITIES: Knees with tenderness as noted previously. A little bit of increased warmth of the skin around the knees. Right shoulder does not have swelling or erythema. Range of motion is little bit limited. LABORATORY DATA: White cell count is at 13.6, hemoglobin 11, platelets 334, and 73% neutrophils. Sodium 134 and creatinine 0.58. Blood culture, no growth to-date and urine culture, no growth at 36 hours probably the final. IMAGING STUDIES: Abdomen and pelvis CT, which showed small bilateral pleural effusions, but no other significant findings. Some moderate amount of stool in the colon. Her CT of chest had demonstrated small bilateral pleural effusions, mediastinal lymphadenopathy, some thickening in the distal esophagus concerning for esophagitis. Prominent lung interstitial fibrotic changes throughout the upper and lower lobes and a prostatic aortic valve in place. ASSESSMENT AND DISCUSSION: History of pulmonary fibrosis and chronic obstructive pulmonary disease, aortic stenosis with aortic valve replacement 6 years before, this admission with a tissue valve and abnormal urinalysis. Recently treated with Macrodantin and then developing a fever, which recurred twice. She did have a left shift with bandemia, though the inflammatory process seems to have improved of late. Again, the main concerns here include prostatic valve endocarditis, which in her case would have to be culture negative and an autoimmune phenomenon associated with pulmonary fibrosis. Potential hypersensitivity reaction to Macrodantin, it is not clear how often she has taken Macrodantin in the past, which can be associated with pulmonary fibrosis and organizing pneumonia. We will continue monitoring the cultures. She may need a transesophageal echocardiogram depending on clinical progress. Job ID: [id number]
--- NOTE | 2019-02-07 10:48 | CON ---
DATE OF CONSULTATION: 02/07/2019 REASON FOR CONSULTATION: Fever and shortness of breath. HISTORY OF PRESENT ILLNESS: Ms. Dawson is a 73-year-old female, who I have seen in the office multiple times in the past. She was originally admitted to the hospital on 02/01/2019, with fever. At that time, she was felt to have sepsis from enterococcus avium and a blood culture is not clear whether or not this was a contaminant or not. She was discharged home on the , but developed fever that night, came back into the hospital on the . She still feels rather poorly. She says she is short of breath, but does not have any cough and is not producing any sputum. PAST MEDICAL HISTORY: 1. Chronic obstructive pulmonary disease, on Breo and Incruse Ellipta. 2. Aortic stenosis requiring prosthetic aortic valve replacement. 3. Hyperlipidemia. 4. Hypertension. 5. Interstitial lung changes. PAST SURGICAL HISTORY: 1. Aortic valve replacement. 2. Right shoulder surgery. 3. Bilateral knee replacement. 4. Cholecystectomy. 5. Tonsillectomy. FAMILY MEDICAL HISTORY: Remarkable for coronary artery disease, myocardial infarction, and stroke. SOCIAL HISTORY: She is . She formerly smoked, quit some time ago. Very occasionally drinks alcohol. MEDICATIONS: Prior to admission; 1. Breo Ellipta. 2. Incruse Ellipta. 3. Levaquin. 4. Zofran. 5. Florastor. 6. Requip. 7. Aspirin. 8. Albuterol. 9. Duloxetine. 10. Omeprazole. 11. Diltiazem. ALLERGIES: AUGMENTIN, CODEINE, AND ULTRAM. REVIEW OF SYSTEMS: She has had some diarrhea. No fever, chills, chest pain, hemoptysis, melena, hematochezia, hematuria, or dysuria. PHYSICAL EXAMINATION: VITAL SIGNS: Temperature 98.2, pulse 83, respirations 16, O2 saturation 92% on 2 L, and blood pressure 107/53. NECK: Without adenopathy, JVD, or bruits. HEENT: She has thrush in the tongue. CARDIAC: S1 and S2 regular without audible murmur. LUNGS: A few crackles in both bases. ABDOMEN: Soft and nontender. EXTREMITIES: No clubbing, cyanosis, or edema. She has bruises from needlesticks to both arms. LABORATORY DATA: White blood cell count 13.6, hematocrit 36.6, and platelet count 334. Sodium 134, potassium 3.6, BUN 8, creatinine 0.5, glucose 92. DIAGNOSTIC DATA: I reviewed the CT of the chest that showed no real significant changes. ASSESSMENT: 1. Fever from sepsis. From my view of the CT, there does not seem to be fever due to a pneumonitis. 2. Underlying chronic obstructive pulmonary disease. 3. Underlying pulmonary interstitial changes. PLAN: The patient is on Diflucan for thrush. She has currently been taken off all the other antibiotics and is having cultures done. I will be happy to follow with you. I am going to start her back on her Breo or Incruse, which she uses at home. Job ID: [id number]
[2019-02-07] MEDS ORDERED: Aluminum & Magnesium Hydroxide 60 ML, diphenhydrAMINE 150 MG, Lidocaine 2% Viscous Solu... SSW PRN (11:13)
--- NOTE | 2019-02-07 11:47 | PRG ---
DATE OF SERVICE: 02/07/2019 SUBJECTIVE: The patient reports that overall she feels like she is feeling somewhat better. She does report some pain in her right shoulder and both knees, where she has previously had joint replacements. States it is unusual for them all to hurt like this. Reports some tenderness to touch. She also reported some previous thrush and was started on some Diflucan. She denies any other specific complaints. OBJECTIVE: VITAL SIGNS: T-max 98.3, pulse 83, respirations 16, O2 saturation 92% on 2 L nasal cannula, BP 107/53. GENERAL APPEARANCE: Age-appropriate female, in no distress. She is awake, alert, oriented, pleasant, cooperative. HEART: Regular with a 2/6 murmur heard at the left lower sternal border apex area. LUNGS: Diminished, but clear bilaterally. ABDOMEN: Soft, nontender, and nondistended. Positive bowel sounds. No masses. No organomegaly. EXTREMITIES: The right shoulder has some slight tenderness to palpation at the AC joint area, but there is no erythema, inflammation, or warmth. Well-healed surgical incision scar. Both knees have well-healed surgical incision scars. There is no erythema or warmth there. She has trace to 1+ pretibial pitting edema. LABORATORY DATA: Magnesium is 1.7. IMPRESSION AND PLAN: 1. Sepsis without clear source. Sepsis appears to be getting better. Her white count has continued to decline and she looks better overall on empiric antibiotics. Infectious Disease has been consulted and following with history of enterococcus and was covered with vancomycin and gentamicin. There is concern for the history of the prosthetic aortic valve. All the cultures remain negative and surface echo was negative considering JOSEPH. 2. Supraventricular tachycardia. Cardiology following, increasing dose of diltiazem. Heart rate is improved today. 3. Arthralgias. The patient has no evidence of active arthritis in these joints, but they are causing her some discomfort. I am not sure that plain films will be helpful as the exam is generally benign, though we will defer to ID. 4. Chronic obstructive pulmonary disease. The patient is chronic smoker. She is requiring some supplemental oxygen to maintain sats. Had negative chest CT. 5. Hypertension, not problematic presently. Pressure is on the low side. 6. History of restless legs syndrome. Continue home medications. Job ID: [id number]
[2019-02-07] MEDS: rOPINIRole HCl 2 MG TAB PO SCH (21:43)
[2019-02-08] MEDS: Sodium Chloride 0.9% 500 ML IV SCH (06:23)
[2019-02-08] MEDS: Ipratropium Bromide 2.5 ml Neb NEB SCH ×4 (06:47→23:23)
[2019-02-08 09:02] LABS: #Eosinphils 0.6 thou/uL (0.0-0.7); #Lymphocytes 2.1 thou/uL (1.20-3.40); #Monocytes 0.5 thou/uL (0.11-0.59); %Basophils 0.4 % (0.0-1.0); %Eosinophils 5.6 % (0.0-10.0); %Lymphocytes 20.8 % (21.0-51.0); %Monocytes 5.1 % (0.0-10.0); %Neutrophils 68.1 % (42.0-75.0); Hemoglobin 11.5 g/dL (12.0-16.0); Mean Corpuscular HGB CONC 32.3 g/dL (32.0-36.0); Mean Corpuscular Hemoglobin 30.7 pg (27.0-31.0); Platelet Count 393 thou/uL (130-400); RBC Distribution Width 13.5 % (11.5-14.5); Red Blood Cell (RBC) Count 3.74 mill/uL (4.20-5.40); White Blood Cell (WBC) Count 10.3 thou/uL (4.8-10.8)
[2019-02-08 09:22] LABS: Anion Gap 13 mmol/L (10-20); BUN (Urea Nitrogen) 5 mg/dL (9.8-20.1); Calc. Creatinine Clearance 87 mL/min (70-130); Calcium 8.7 mg/dL (7.8-10.44); Carbon Dioxide 24 mmol/L (23-31); Chloride 104 mmol/L (98-107); Estimated GFR-MDRD Greater than 90; Glucose 99 mg/dL (83-110); Potassium 3.3 mmol/L (3.5-5.1); Sodium 138 mmol/L (136-145)
--- NOTE | 2019-02-08 10:11 | PRG ---
DATE OF SERVICE: 02/08/2019 SUBJECTIVE: She is breathing well today and has no complaints about that. OBJECTIVE: VITAL SIGNS: Temperature 98.0, pulse 101, respirations 20, O2 saturation 92% on 2 L, and blood pressure 114/56. HEENT: Unremarkable. NECK: No JVD. CHEST: Clear to auscultation without wheezing. CARDIAC: S1, S2. Regular. ABDOMEN: Soft. EXTREMITIES: No edema. ASSESSMENT: 1. Stable chronic obstructive pulmonary disease. 2. Question of prosthetic valve endocarditis. PLAN: 1. Continue present inhalers. 2. Antibiotic therapy per Dr. Metz. Job ID: [id number]
[2019-02-08] MEDS: Aspirin 81 mg Enteric Coated Tablet PO SCH (11:03)
[2019-02-08] MEDS: Saccharomyces boulardii 250 MG CAP PO SCH (11:04)
[2019-02-08] MEDS: Fluconazole 100 MG TAB PO SCH (11:04)
[2019-02-08] MEDS: DULoxetine 60 MG CAP PO SCH (11:05)
[2019-02-08] MEDS: Enoxaparin Sodium 40 MG/0.4 ML SYRINGE SC SCH (11:06)
--- NOTE | 2019-02-08 17:41 | PRG ---
DATE OF SERVICE: 02/08/2019 SUBJECTIVE: Ms. Dawson has a little bit of pain in the right shoulder still and the knees, which is more of a chronic problem. No respiratory symptoms or abdominal pain. No objective symptoms. OBJECTIVE: VITAL SIGNS: Temperature has been normal here in the hospital. GENERAL: Awake, alert. LUNGS: With a few scattered inspiratory crackles. HEART: S1 and S2. Regular rate. ABDOMEN: Soft, not distended or tender. No ascites. No bladder distention. LABORATORY DATA: White cell count is at 10.3, hemoglobin 11, platelets 393, and 68% neutrophils. Sodium 138 and creatinine 0.62. Blood cultures were negative blood cultures at 48 hours. Urine culture, no growth at 36 hours. ASSESSMENT AND DISCUSSION: 1. History of pulmonary fibrosis. 2. Chronic obstructive pulmonary disease. 3. Aortic stenosis with aortic valve replacement 6 years before with recurrent fevers. 4. Possible urinary tract infection, which seemed to respond to antimicrobial therapy. Again, the differential diagnosis includes prosthetic valve endocarditis versus pulmonary infection versus including the possibility of an atypical pulmonary infection or invasive urinary tract infection. She seemed to respond to the antimicrobial therapy and I do not feel strongly enough to justify ordering a JOSEPH at this point in time, but if she has recurrence of the fever, I would pursue that a test, which obviously would require readmission to the hospital. I would also consider submitting sputums for AFB and fungal cultures, but I can do that in the outpatient setting. Job ID: [id number]
--- NOTE | 2019-02-08 18:28 | PRG ---
DATE OF SERVICE: 02/08/2019 SUBJECTIVE: The patient feels better today overall and feels like her breathing is generally comfortable. She has no specific complaints. OBJECTIVE: VITAL SIGNS: Temperature 98.1, pulse 99, respirations 20, O2 saturation 87% to 93% on room air, BP 109/57. GENERAL APPEARANCE: Age-appropriate female, in no distress. She is awake, alert, oriented, pleasant, and cooperative. HEART: Regular rate and rhythm without murmurs, gallops, or rubs. LUNGS: Diminished diffusely without significant wheezes or rales. ABDOMEN: Soft, nontender, and nondistended. Positive bowel sounds. No masses. No organomegaly. EXTREMITIES: Warm and dry without edema. LABORATORY DATA: White count 10.3, hemoglobin 11.5, platelets 393. Sodium 138, potassium 3.3, chloride 104, CO2 is 24, BUN 5, creatinine 0.62. IMPRESSION AND PLAN: 1. Sepsis with unclear source. ID following and the patient have improved white counts, normal. She has been afebrile. We will anticipate discharge to home in the morning if counts remain stable and she remains afebrile, discussed with ID. We will follow up with her as an outpatient for AFB screening. 2. Supraventricular tachycardia. Heart rate is still slightly variable, but improved and adequate. 3. Arthralgia, stable. 4. Chronic obstructive pulmonary disease with some scarring on CT. Continue with oxygen. 5. Hypertension, stable. 6. History of restless legs syndrome. Continue home medications. Job ID: [id number]
[2019-02-08] MEDS: rOPINIRole HCl 2 MG TAB PO SCH (21:01)
[2019-02-08] MEDS: HYDROcodone/Acetaminophen 7.5/325 mg Tablet PO PRN (21:01)
[2019-02-09] MEDS: Ipratropium Bromide 2.5 ml Neb NEB SCH (07:03)
[2019-02-09] MEDS: DULoxetine 60 MG CAP PO SCH (09:02)
[2019-02-09] MEDS: Aspirin 81 mg Enteric Coated Tablet PO SCH (09:02)
[2019-02-09] MEDS: Enoxaparin Sodium 40 MG/0.4 ML SYRINGE SC SCH (09:03)
[2019-02-09] MEDS: Fluconazole 100 MG TAB PO SCH (09:03)
[2019-02-09] MEDS: Saccharomyces boulardii 250 MG CAP PO SCH ×2 (09:04→11:03)
--- NOTE | 2019-02-09 09:45 | PRG ---
DATE OF SERVICE: 02/09/2019 SUBJECTIVE: She feels okay, had no complaints. OBJECTIVE: VITAL SIGNS: Temperature 97.8, pulse 99, respirations 18, O2 saturation 95% on 2 L, blood pressure 109/55. HEENT: Unremarkable. NECK: No JVD. CHEST: Clear to auscultation. CARDIAC: S1 and S2, regular. ABDOMEN: Soft. EXTREMITIES: No edema. LABORATORY DATA: No new labs were done today. ASSESSMENT: 1. Chronic obstructive pulmonary disease, which is clinically stable. 2. Bacteremia. 3. Supraventricular tachycardia. PLAN: Her COPD is stable on current medications. The sepsis issues are being contemplated by the patient's Internal Medicine and Infectious Disease teams. Job ID: [id number]
[2019-02-09 11:08] VITALS: BP 115/56; TEMP 97.9
--- NOTE | 2019-02-11 14:27 | PQF ---
DATE: 02-11-19 ATTN: DR. LEI RÍOS Please exercise your independent, professional judgment in responding to the clarification form. Clinical indicators are provided on the bottom of this form for your review Please check appropriate box(s) to clarify if the following diagnosis has been ruled in or ruled out: PROSTHETIC VALVE ENDOCARDITIS [ ] Ruled in diagnosis [ ] Continue to treat [ ] Resolved [ x ] Ruled out diagnosis [ ] Other diagnosis [ ] Unable to determine In addition, please specify: Present on Admission (POA): [ ] Yes [ ] No [ ] Unable to determine For continuity of documentation, please document condition throughout progress notes and discharge summary. Thank You. CLINICAL INDICATORS - SIGNS / SYMPTOMS / LABS Beth H&P: I would be concerned that she could have culture negative endocarditis. PN 02/06 (SAROJ): 1) Sepsis...there was some suspicion of possible endocarditis; 2) hx of bioprosthetic valve; CLAUDIA Consult: Discussion - Evidently in a pt with an AVR, the concern w/ prosthetic valve endocarditis is present , but her cultures have been negative & the ECHO did not show any vegetation. CLAUDIA PN 02/07: DISCUSSION - ...Again, the main concerns here include prostatic valve endocarditis, which in her case would have to be culture negative. PN 02/07 (KHUSHBU): 1) SEPSIS w/o clear source. Infectious Disease has been consulted & following w/hx of enterococcus & covered w/vancomycin & gentamicin. There is concern for hx of prosthetic aortic valve. FAVIAN PN 02/08: 2) Question of prosthetic valve endocarditis. CLAUDIA PN 02/08: Again, the differential diagnosis includes prosthetic valve endocarditis vs pulmonary infection vs including the possibility of an atypical pulmonary infection or invasive uti. RISK FACTORS: PN 02/06 (SAROJ): 1) Sepsis...there was some suspicion of possible endocarditis; 2) hx of bioprosthetic valve; TREATMENTS: PN 02/07 (KHUSHBU): 1) SEPSIS w/o clear source. Infectious Disease has been consulted & following w/hx of enterococcus & covered w/vancomycin & gentamicin. There is concern for hx of prosthetic aortic valve. (This form is maintained as a part of the permanent medical record) 2014 [employer]. All Rights Reserved BRUNILDA [email or web address] Office: [phone] BETH
== END 2019-02-09 13:59 | disposition home or self-care (01) | DRG 872 ==
LOC: ERS 21:35 → T4-A 23:10 → 2NO 02-05 22:41
PROVIDERS: ADMIT Internal Medicine; ATTEND Internal Medicine
DX: A41.9 Sepsis, unspecified organism (principal); I47.1 Supraventricular tachycardia; K21.9 Gastro-esophageal reflux disease without esophagitis; J44.9 Chronic obstructive pulmonary disease, unspecified; D72.825 Bandemia; J84.10 Pulmonary fibrosis, unspecified; M25.50 Pain in unspecified joint; I10 Essential (primary) hypertension; G25.81 Restless legs syndrome; E78.00 Pure hypercholesterolemia, unspecified; Z96.653 Presence of artificial knee joint, bilateral; Z87.891 Personal history of nicotine dependence; Z88.8 Allergy status to other drugs, medicaments and biological substances; Z88.5 Allergy status to narcotic agent; Z79.82 Long term (current) use of aspirin; Z79.899 Other long term (current) drug therapy; Z79.01 Long term (current) use of anticoagulants; Z90.49 Acquired absence of other specified parts of digestive tract; Z95.4 Presence of other heart-valve replacement
CPT/HCPCS: 36415; 71045; 71275; 74177; 80048; 80053; 80170; 81003; 81015; 82553; 83605; 83735; 83880; 84484; 85025; 87040; 87077; 87086; 87149; 87186; 87804; 93005; 93010; 93306; 94640; 96361; 96365; 96366; 96367; G0378; J1580; J1650; J1956; J2543; J3370; J3480; J7050; Q0163; Q9966; Q9967

== ENCOUNTER 2019-03-21 11:23 | Outpatient (CLI) | payer MEDICARE, OTHER ==
--- NOTE | 2019-03-21 13:21 | RAD ---
TWO VIEW CHEST: INDICATION: Hemoptysis. Hospital followup. COMPARISON: 02/05/2019. FINDINGS: Heart size upper normal and stable with postop sternotomy change. Prosthetic heart valve again noted . Bilateral interstitial prominence is again seen and is stable. Streaky opacity into the right apex i s unchanged. No new infiltrate or interval change seen. IMPRESSION: Stable chest findings. POS: TPC
== END 2019-03-21 11:24 | disposition home or self-care (01) ==
LOC: BICRAD 11:23
PROVIDERS: ATTEND Internal Medicine Infectious Disease
DX: R04.2 Hemoptysis (principal)
CPT/HCPCS: 71046

== ENCOUNTER 2019-12-01 14:49 | Outpatient (CLI) | payer MEDICARE, OTHER ==
--- NOTE | 2019-12-01 16:01 | RAD ---
CHEST TWO VIEW: 12/01/19 HISTORY: Dyspnea. COMPARISON: Radiograph . FINDINGS: Similar appearance left lower lobe air space opacity. Scarring in the lung apices. No pneumothorax. P ulmonary arteries are dilated. IMPRESSION: Findings of left lower lobe pneumonia. POS: CET
== END 2019-12-01 14:50 | disposition home or self-care (01) ==
LOC: RAD 14:49
PROVIDERS: ATTEND Internal Medicine Critical Care Medicine
DX: R06.00 Dyspnea, unspecified (principal); J18.9 Pneumonia, unspecified organism
CPT/HCPCS: 71046

== ENCOUNTER 2020-08-15 10:58 | Outpatient (CLI) | payer MEDICARE, OTHER ==
--- NOTE | 2020-08-15 12:29 | BD ---
EXAM: DEXA bone density examination HISTORY: 74-year-old postmenopausal female for screening COMPARISON: None FINDINGS: L1--bone mineral density 0.841 g/sq cm; T score -1.4 L2--bone mineral density 0.942 g/sq cm; T score -0.8 L3--bone mineral density 1.018 g/sq cm; T score -0.6 L4--bone mineral density 1.118 g/sq cm; T score 0.5 Total L1-L4--bone mineral density 0.972 g/sq cm; T score -0.7 Left femoral neck--bone mineral density0.616; T score -2.1 Total proximal left femur--bone mineral density 0.674; T score -2.2 IMPRESSION: Osteopenia.
--- NOTE | 2020-08-15 13:33 | MMO ---
Bilateral MAMMO Bilat Screen [facility]. CLINICAL HISTORY: Patient is 74 years old and is seen for screening. The patient has no family history of breast cancer. The patient has no personal history of cancer. VIEWS: The views performed were: bilateral craniocaudal with tomosynthesis and bilateral mediolateral oblique with tomosynthesis. FILMS COMPARED: The present examination has been compared to a prior imaging study performed at [facility] on 01/21/2017. This study has been interpreted with the assistance of computer-aided detection. MAMMOGRAM FINDINGS: There are scattered fibroglandular densities. There are no suspicious masses, suspicious calcifications, or new areas of architectural distortion. IMPRESSION: THERE IS NO MAMMOGRAPHIC EVIDENCE OF MALIGNANCY. A ROUTINE FOLLOW-UP MAMMOGRAM IN 1 YEAR IS RECOMMENDED. THE RESULTS OF THIS EXAM WERE SENT TO THE PATIENT. ACR BI-RADS Category 1 - Negative MAMMOGRAPHY NOTE: 1. A negative mammogram report should not delay a biopsy if a dominant of clinically suspicious mass is present. 2. Approximately 10% to 15% of breast cancers are not detected by mammography. 3. Adenosis and dense breasts may obscure an underlying neoplasm. Reported by: AB OROZCO MD Electonically Signed: [id number]
== END 2020-08-15 10:59 | disposition home or self-care (01) ==
LOC: BICMAMMO 10:58
PROVIDERS: ATTEND Registered Nurse
DX: Z12.31 Encounter for screening mammogram for malignant neoplasm of breast (principal); Z13.820 Encounter for screening for osteoporosis; Z78.0 Asymptomatic menopausal state; M85.89 Other specified disorders of bone density and structure, multiple sites
CPT/HCPCS: 77063; 77067; 77080

== ENCOUNTER 2021-02-17 13:11 | Inpatient (IN) | payer MEDICARE, OTHER ==
[2021-02-17 14:34] LABS: #Basophils 0.1 thou/uL (0.0-0.2); #Eosinphils 0.4 thou/uL (0.0-0.7); #Lymphocytes 3.7 thou/uL (1.20-3.40); #Monocytes 0.7 thou/uL (0.11-0.59); #Neutrophils 9.8 thou/uL (1.40-6.50); %Basophils 0.8 % (0.0-1.0); %Eosinophils 2.7 % (0.0-10.0); %Lymphocytes 25.2 % (21.0-51.0); %Monocytes 4.9 % (0.0-10.0); %Neutrophils 66.5 % (42.0-75.0); Hemoglobin 14.3 g/dL (12.0-16.0); Mean Corpuscular HGB CONC 33.7 g/dL (32.0-36.0); Mean Corpuscular Hemoglobin 32.5 pg (27.0-31.0); Mean Corpuscular Volume 96.5 fL (78.0-98.0); Mean Platelet Volume 7.6 fL (7.4-10.4); Platelet Count 306 thou/uL (130-400); RBC Distribution Width 12.8 % (11.5-14.5); Red Blood Cell (RBC) Count 4.39 mill/uL (4.20-5.40); White Blood Cell (WBC) Count 14.8 thou/uL (4.8-10.8)
[2021-02-17] MEDS ORDERED: Fentanyl 100 MCG/2 ML VIAL ONE ×2 (14:44→18:06)
[2021-02-17 14:59] LABS: ALT (SGPT) 15 U/L (8-55); AST (SGOT) 21 U/L (5-34); Albumin 3.8 g/dL (3.4-4.8); Alkaline Phosphatase 100 U/L (40-110); Anion Gap 15 mmol/L (10-20); BUN (Urea Nitrogen) 17 mg/dL (9.8-20.1); Bilirubin, Total 0.3 mg/dL (0.2-1.2); Calc. Creatinine Clearance 0 mL/min (70-130); Calcium 8.9 mg/dL (7.8-10.44); Carbon Dioxide 21 mmol/L (23-31); Chloride 106 mmol/L (98-107); Globulin 3.6 g/dL (2.4-3.5); Glucose 80 mg/dL (83-110); Potassium 4.3 mmol/L (3.5-5.1); Protein, Total 7.4 g/dL (5.8-8.1); Sodium 138 mmol/L (136-145)
[2021-02-17] MEDS ORDERED: hydrALAZINE 20 MG/ML VIAL SLOW IVP PRN (16:29)
[2021-02-17] MEDS ORDERED: Dextrose 50% Abboject 50 ML SYRINGE SLOW IVP PRN (16:29)
[2021-02-17] MEDS ORDERED: Ondansetron PF 4 MG/2 ML Vial IVP PRN (16:29)
[2021-02-17] MEDS ORDERED: Dextrose 5% in Water 1,000 ML IV PRN (16:29)
[2021-02-17] MEDS ORDERED: CEFAZOLIN 2 GM in Premix Bag 1 BAG IVPB SCH (16:30)
[2021-02-17] MEDS ORDERED: traMADol HCl 50 MG TAB PO PRN (16:31)
[2021-02-17] MEDS ORDERED: Cyclobenzaprine 10 MG TAB PO PRN (16:31)
[2021-02-17] MEDS ORDERED: Senokot 8.6 MG TAB PO PRN (16:32)
[2021-02-17] MEDS ORDERED: traMADol HCl 50 MG TAB PO SCH (18:00)
[2021-02-17] MEDS: Ibuprofen 200 MG TAB PO SCH ×2 (18:18→23:03)
[2021-02-17] MEDS ORDERED: Lidocaine 1% PF 5 ML VIAL ONE (18:40)
[2021-02-17] MEDS ORDERED: PROPOFOL 200 MG/20 ML VIAL ONE (18:40)
[2021-02-17] MEDS ORDERED: Succinylcholine 200 MG/10 ml SYRINGE FS ONE (18:40)
[2021-02-17] MEDS ORDERED: Ondansetron PF 4 MG/2 ML Vial ONE (18:40)
[2021-02-17] MEDS ORDERED: Rocuronium Bromide 10 MG/ML (10ML VIAL) ONE (18:40)
[2021-02-17] MEDS ORDERED: Dexamethasone 20 MG/5 ML VIAL ONE (18:40)
[2021-02-17] MEDS ORDERED: Bupivacaine PF 0.5% 30 ML VIAL ONE (19:53)
[2021-02-17] MEDS ORDERED: SUGAMMADEX SODIUM 200 MG/2 ML VIAL ONE (19:58)
[2021-02-17] MEDS ORDERED: HYDROmorphone 2 MG/ML VIAL SLOW IVP PRN (20:34)
[2021-02-17] MEDS ORDERED: Morphine Sulfate 2 MG/ML SYRINGE SLOW IVP PRN (20:34)
[2021-02-17] MEDS ORDERED: Promethazine HCl 25 MG/ML VIAL IM PRN (20:34)
[2021-02-17] MEDS ORDERED: Ondansetron HCl/PF 4 MG/2 ML Vial IVP PRN (20:34)
[2021-02-17] MEDS ORDERED: PACU-Morphine 4MG/ML VIAL SLOW IVP PRN (20:34)
[2021-02-17] MEDS ORDERED: Promethazine HCl 25 MG/ML VIAL SLOW IVP PRN (20:34)
[2021-02-17] MEDS ORDERED: Famotidine/PF 20 mg/2ml Vial SLOW IVP SCH (21:00)
[2021-02-17] MEDS ORDERED: Albuterol 200 PUFF (6.7GM INHALER) INH PRN (21:02)
[2021-02-17] MEDS: Aspirin 81 mg Enteric Coated Tablet PO SCH (22:35)
[2021-02-17] MEDS: Oxazepam 10 MG CAP PO SCH (22:36)
[2021-02-18] MEDS: Ipratropium Bromide 2.5 ml Neb NEB SCH ×5 (00:48→23:13)
[2021-02-18 01:55] VITALS: BMI 25.2
[2021-02-18] MEDS: CEFAZOLIN 2 GM in Premix Bag 1 BAG IVPB SCH ×3 (03:36→18:09)
[2021-02-18] MEDS: Ibuprofen 200 MG TAB PO SCH ×3 (05:23→18:08)
[2021-02-18] MEDS: Oxazepam 10 MG CAP PO SCH ×3 (05:23→20:58)
[2021-02-18] MEDS ORDERED: Morphine 2 MG/ML VIAL SLOW IVP STA (06:11)
[2021-02-18] MEDS ORDERED: diphenhydrAMINE 25 MG CAP PO PRN (06:12)
[2021-02-18] MEDS: Acetaminophen 325 MG TAB PO SCH ×3 (06:30→18:07)
[2021-02-18 06:41] LABS: Phosphorus 3.7 mg/dL (2.3-4.7)
[2021-02-18 06:44] LABS: Anion Gap 14 mmol/L (10-20); BUN (Urea Nitrogen) 16 mg/dL (9.8-20.1); Calc. Creatinine Clearance 59 mL/min (70-130); Calcium 8.3 mg/dL (7.8-10.44); Carbon Dioxide 22 mmol/L (23-31); Chloride 106 mmol/L (98-107); Glucose 187 mg/dL (83-110); Magnesium 1.8 mg/dL (1.6-2.6); Potassium 4.5 mmol/L (3.5-5.1); Sodium 137 mmol/L (136-145)
[2021-02-18 06:47] LABS: #Lymphocytes 1.7 thou/uL (1.20-3.40); #Monocytes 0.3 thou/uL (0.11-0.59); #Neutrophils 9.1 thou/uL (1.40-6.50); %Basophils 0.1 % (0.0-1.0); %Monocytes 2.4 % (0.0-10.0); %Neutrophils 82.4 % (42.0-75.0); Hemoglobin 12.9 g/dL (12.0-16.0); Mean Corpuscular HGB CONC 32.3 g/dL (32.0-36.0); Mean Corpuscular Hemoglobin 31.4 pg (27.0-31.0); Mean Corpuscular Volume 97.1 fL (78.0-98.0); Mean Platelet Volume 8.1 fL (7.4-10.4); Platelet Count 286 thou/uL (130-400); RBC Distribution Width 12.9 % (11.5-14.5); White Blood Cell (WBC) Count 11.1 thou/uL (4.8-10.8)
[2021-02-18] MEDS: Mometasone 100 MCG/Formoterol 5 MCG 120 PUFF INHALER INH SCH ×2 (06:51→18:38)
[2021-02-18 08:54] LABS: SARS-CoV-2 PCR by NAA Not Detected (NotDetected)
[2021-02-18] MEDS ORDERED: Aspirin 325 MG TAB PO SCH (09:00)
[2021-02-18] MEDS ORDERED: Aspirin Chewable 81 MG TAB PO SCH (09:00)
[2021-02-18] MEDS ORDERED: FLU VACC QS2020-21(65YR UP)/PF 240 MCG/0.7 ML SYRINGE IM ONE (09:00)
[2021-02-18] MEDS ORDERED: traMADol HCl 50 MG TAB PO PRN (09:48)
[2021-02-18] MEDS: Polyethylene Glycol 3350 17 GM Packet PO SCH ×2 (10:12→10:39)
[2021-02-18] MEDS: Saccharomyces boulardii 250 MG CAP PO SCH (10:13)
[2021-02-18] MEDS: Famotidine 20 MG TAB PO SCH ×2 (10:13→20:50)
[2021-02-18] MEDS: DULoxetine 60 MG CAP PO SCH (10:13)
[2021-02-18] MEDS: Aspirin 81 mg Enteric Coated Tablet PO SCH ×2 (10:13→20:50)
[2021-02-18] MEDS: Thiamine 100 MG TAB PO SCH (10:13)
[2021-02-18] MEDS: Senokot 8.6 MG TAB PO SCH (10:20)
[2021-02-18] MEDS: traMADol HCl 50 MG TAB PO SCH ×2 (12:55→17:54)
[2021-02-18] MEDS: rOPINIRole HCl 2 MG TAB PO SCH (20:50)
[2021-02-18] MEDS ORDERED: Aspirin 81 mg Enteric Coated Tablet PO SCH (21:00)
[2021-02-19] MEDS: traMADol HCl 50 MG TAB PO SCH ×2 (00:17→05:26)
[2021-02-19] MEDS: Acetaminophen 325 MG TAB PO SCH ×2 (00:17→05:19)
[2021-02-19] MEDS: Ibuprofen 200 MG TAB PO SCH ×5 (00:17→23:30)
[2021-02-19] MEDS: Oxazepam 10 MG CAP PO SCH ×3 (05:27→23:29)
[2021-02-19] MEDS: Ipratropium Bromide 2.5 ml Neb NEB SCH ×3 (07:14→18:54)
[2021-02-19] MEDS: Mometasone 100 MCG/Formoterol 5 MCG 120 PUFF INHALER INH SCH ×2 (07:31→18:59)
[2021-02-19] MEDS: Polyethylene Glycol 3350 17 GM Packet PO SCH (08:24)
[2021-02-19] MEDS: Saccharomyces boulardii 250 MG CAP PO SCH (08:24)
[2021-02-19] MEDS: DULoxetine 60 MG CAP PO SCH (08:24)
[2021-02-19] MEDS: Aspirin 81 mg Enteric Coated Tablet PO SCH (08:24)
[2021-02-19] MEDS: Thiamine 100 MG TAB PO SCH (08:24)
[2021-02-19] MEDS: Senokot 8.6 MG TAB PO SCH (08:24)
[2021-02-19] MEDS: Famotidine 20 MG TAB PO SCH (08:24)
[2021-02-19] MEDS ORDERED: Acetaminophen/Codeine 30-300mg Tablet PO PRN ×2 (10:11)
[2021-02-19] MEDS ORDERED: Enoxaparin Sodium 40 MG/0.4 ML SYRINGE SC SCH (10:15)
[2021-02-19] MEDS ORDERED: traMADol HCl 50 MG TAB PO PRN (13:39)
[2021-02-19] MEDS: Acetaminophen 500 MG TAB PO SCH ×2 (14:32→20:14)
[2021-02-19] MEDS: rOPINIRole HCl 2 MG TAB PO SCH (20:15)
[2021-02-20] MEDS: Ipratropium Bromide 2.5 ml Neb NEB SCH ×2 (00:02→07:18)
[2021-02-20] MEDS: Acetaminophen 500 MG TAB PO SCH ×2 (02:45→08:48)
[2021-02-20] MEDS: Ibuprofen 200 MG TAB PO SCH (05:27)
[2021-02-20] MEDS: Oxazepam 10 MG CAP PO SCH (05:28)
[2021-02-20] MEDS: Mometasone 100 MCG/Formoterol 5 MCG 120 PUFF INHALER INH SCH (07:16)
[2021-02-20] MEDS ORDERED: Ipratropium Bromide 2.5 ml Neb ONE (07:28)
[2021-02-20 08:39] VITALS: BP 129/73; TEMP 97.6
[2021-02-20] MEDS: Polyethylene Glycol 3350 17 GM Packet PO SCH (08:47)
[2021-02-20] MEDS: DULoxetine 60 MG CAP PO SCH (08:47)
[2021-02-20] MEDS: Saccharomyces boulardii 250 MG CAP PO SCH (08:48)
[2021-02-20] MEDS: Senokot 8.6 MG TAB PO SCH (08:50)
[2021-02-20] MEDS: Thiamine 100 MG TAB PO SCH (08:51)
[2021-02-20] MEDS ORDERED: Enoxaparin Sodium 40 MG/0.4 ML SYRINGE SC SCH (09:00)
== END 2021-02-20 12:18 | disposition critical access hospital (66) | DRG 494 ==
LOC: ERS 13:11 → INTOOBSV 14:55 → SURG A 14:55 → OBSVTOIN 15:00
PROVIDERS: ADMIT Surgery; ATTEND Surgery
PROC: 0QSJ04Z Reposition Right Fibula with Internal Fixation Device, Open Approach (ICD-10-PCS; principal; 2021-02-17)
DX: S82.851A Displaced trimalleolar fracture of right lower leg, initial encounter for closed fracture (principal); W18.30XA Fall on same level, unspecified, initial encounter; E78.5 Hyperlipidemia, unspecified; M54.30 Sciatica, unspecified side; G25.81 Restless legs syndrome; J43.9 Emphysema, unspecified; Z20.822 Contact with and (suspected) exposure to COVID-19; Z79.82 Long term (current) use of aspirin; Z95.2 Presence of prosthetic heart valve; Z88.1 Allergy status to other antibiotic agents; Z88.5 Allergy status to narcotic agent; Z88.8 Allergy status to other drugs, medicaments and biological substances
CPT/HCPCS: 29515; 36415; 70450; 72170; 76000; 80048; 80053; 83735; 84100; 84484; 85025; 87635; 93005; 94640; 96374; C1713; J0690; J1100; J1650; J2270; J2405; J2704; J3010; J7620; S0020; S0028; U0003; U0005

== ENCOUNTER 2021-07-01 03:29 | Inpatient (IN) | payer MEDICARE, OTHER ==
[2021-07-01 04:37] LABS: PTT 29.9 sec (22.9-36.1)
[2021-07-01 04:38] LABS: #Basophils 0.1 thou/uL (0.0-0.2); #Eosinphils 0.5 thou/uL (0.0-0.7); #Lymphocytes 4.6 thou/uL (1.20-3.40); #Monocytes 0.6 thou/uL (0.11-0.59); #Neutrophils 5.7 thou/uL (1.40-6.50); %Basophils 1.1 % (0.0-1.0); %Eosinophils 4.2 % (0.0-10.0); %Lymphocytes 40.1 % (21.0-51.0); %Monocytes 4.9 % (0.0-10.0); %Neutrophils 49.7 % (42.0-75.0); Hemoglobin 12.8 g/dL (12.0-16.0); INR-International Normal Ratio 0.9; Mean Corpuscular HGB CONC 32.3 g/dL (32.0-36.0); Mean Corpuscular Hemoglobin 30.9 pg (27.0-31.0); Mean Corpuscular Volume 95.7 fL (78.0-98.0); Mean Platelet Volume 7.6 fL (7.4-10.4); Platelet Count 389 thou/uL (130-400); Prothrombin Time 12.6 sec (12.0-14.7); RBC Distribution Width 13.6 % (11.5-14.5); Red Blood Cell (RBC) Count 4.15 mill/uL (4.20-5.40); White Blood Cell (WBC) Count 11.5 thou/uL (4.8-10.8)
[2021-07-01 04:51] LABS: ALT (SGPT) 12 U/L (8-55); AST (SGOT) 16 U/L (5-34); Albumin 3.5 g/dL (3.4-4.8); Alkaline Phosphatase 104 U/L (40-110); Anion Gap 12 mmol/L (10-20); BUN (Urea Nitrogen) 17 mg/dL (9.8-20.1); Bilirubin, Total 0.2 mg/dL (0.2-1.2); Calc. Creatinine Clearance 0 mL/min (70-130); Calcium 8.8 mg/dL (7.8-10.44); Carbon Dioxide 23 mmol/L (23-31); Chloride 108 mmol/L (98-107); Globulin 3.4 g/dL (2.4-3.5); Glucose 97 mg/dL (83-110); Potassium 3.9 mmol/L (3.5-5.1); Protein, Total 6.9 g/dL (5.8-8.1); Sodium 139 mmol/L (136-145)
[2021-07-01] MEDS ORDERED: cefTRIAXone\\ROCEPHIN 2 GM VIAL ONE (06:37)
[2021-07-01] MEDS ORDERED: Azithromycin 500 MG VIAL ONE (07:20)
[2021-07-01 08:18] LABS: SARS-CoV-2 NAA Rapid Test Not Detected (NotDetected)
[2021-07-01] MEDS ORDERED: Ondansetron ODT 4 MG TAB PO PRN (08:34)
[2021-07-01] MEDS ORDERED: Acetaminophen 650 MG Suppository PR PRN (08:34)
[2021-07-01] MEDS ORDERED: Ondansetron PF 4 MG/2 ML Vial IVP PRN (08:34)
[2021-07-01] MEDS ORDERED: Guaifenesin DM 100-10/5 ML UDCUP PO PRN (08:34)
[2021-07-01] MEDS: Sodium Chloride 0.9% 1,000 ML IV SCH ×2 (09:28→20:39)
[2021-07-01] MEDS ORDERED: Iopamidol-370 76% 500 ML 1 ML ONE (10:54)
[2021-07-01] MEDS ORDERED: Acetaminophen 325 MG TAB ONE (13:30)
[2021-07-01] MEDS: Acetaminophen 325 MG TAB PO PRN (13:38)
[2021-07-01 14:19] VITALS: BMI 25.7
[2021-07-01 16:58] LABS: Magnesium 1.5 mg/dL (1.6-2.6)
[2021-07-01] MEDS ORDERED: Magnesium 2 GM/50 ML 2 GM in Premix Bag 1 BAG IVPB SCH (17:00)
[2021-07-01] MEDS ORDERED: Diltiazem HCl CD 300 mg Capsule PO SCH (17:00)
[2021-07-01] MEDS ORDERED: Metoprolol Tartrate 5 MG/5 ML VIAL IVP SCH (17:51)
[2021-07-01] MEDS: Ipratropium Bromide 2.5 ml Neb NEB SCH (19:05)
[2021-07-01] MEDS: Mometasone 100 MCG/Formoterol 5 MCG 120 PUFF INHALER INH SCH (19:07)
[2021-07-01] MEDS: rOPINIRole HCl 2 MG TAB PO SCH (20:36)
[2021-07-01] MEDS ORDERED: [UNRECOGNIZED DRUG - MIXTURE] IH SCH (21:00)
[2021-07-01] MEDS ORDERED: Non-Formulary Item 1 EACH (Umeclidinium Bromide [Incruse Ellipta] 62.5 MCG Blst.W.Dev) IH SCH (21:00)
[2021-07-02] MEDS: Ipratropium Bromide 2.5 ml Neb NEB SCH ×4 (00:43→18:51)
[2021-07-02 04:51] LABS: Anion Gap 12 mmol/L (10-20); BUN (Urea Nitrogen) 9 mg/dL (9.8-20.1); Calc. Creatinine Clearance 75 mL/min (70-130); Carbon Dioxide 18 mmol/L (23-31); Chloride 107 mmol/L (98-107); Glucose 101 mg/dL (83-110); Potassium 3.4 mmol/L (3.5-5.1); Sodium 134 mmol/L (136-145)
[2021-07-02 04:59] LABS: Hemoglobin 12.6 g/dL (12.0-16.0); Mean Corpuscular HGB CONC 33.3 g/dL (32.0-36.0); Mean Corpuscular Hemoglobin 31.5 pg (27.0-31.0); Mean Corpuscular Volume 94.6 fL (78.0-98.0); Mean Platelet Volume 7.7 fL (7.4-10.4); Platelet Count 319 thou/uL (130-400); RBC Distribution Width 13.6 % (11.5-14.5); White Blood Cell (WBC) Count 34.9 thou/uL (4.8-10.8)
[2021-07-02 05:00] LABS: Band 8 % (5-11); Eosinophils 1 % (0-10); Lymphocytes 8 % (21-51); MDiff Complete? YES; Monocytes 3 % (0-10); Neutrophil 79 % (42-75); Platelet Morphology Comment Appears Adequate; RBC Morphology Normal; Reactive Lymphocytes 1 % (0-10)
[2021-07-02] MEDS: Sodium Chloride 0.9% 1,000 ML IV SCH ×3 (07:41→20:28)
[2021-07-02] MEDS: cefTRIAXone\\ROCEPHIN 1 GM in Sodium Chloride 0.9% 100 ML IVPB SCH (09:28)
[2021-07-02] MEDS: Azithromycin 500 MG in Sodium Chloride 0.9% 250 ML 250 ML IVPB SCH (09:45)
[2021-07-02] MEDS: Mometasone 100 MCG/Formoterol 5 MCG 120 PUFF INHALER INH SCH ×2 (14:19→18:54)
[2021-07-02] MEDS ORDERED: DULoxetine 60 MG CAP PO SCH (18:00)
[2021-07-02] MEDS: rOPINIRole HCl 2 MG TAB PO SCH (20:30)
[2021-07-03] MEDS: Ipratropium Bromide 2.5 ml Neb NEB SCH ×5 (00:46→23:57)
[2021-07-03] MEDS: Sodium Chloride 0.9% 1,000 ML IV SCH (05:48)
[2021-07-03] MEDS: Mometasone 100 MCG/Formoterol 5 MCG 120 PUFF INHALER INH SCH ×2 (07:10→18:05)
[2021-07-03] MEDS: Azithromycin 500 MG in Sodium Chloride 0.9% 250 ML 250 ML IVPB SCH (09:30)
[2021-07-03] MEDS: DULoxetine 60 MG CAP PO SCH (09:31)
[2021-07-03] MEDS: cefTRIAXone\\ROCEPHIN 1 GM in Sodium Chloride 0.9% 100 ML IVPB SCH (09:31)
[2021-07-03 09:43] LABS: #Eosinphils 0.4 thou/uL (0.0-0.7); #Lymphocytes 2.8 thou/uL (1.20-3.40); #Monocytes 0.6 thou/uL (0.11-0.59); #Neutrophils 15.2 thou/uL (1.40-6.50); %Basophils 0.2 % (0.0-1.0); %Lymphocytes 14.5 % (21.0-51.0); %Monocytes 3.1 % (0.0-10.0); %Neutrophils 80.2 % (42.0-75.0); Hemoglobin 12.4 g/dL (12.0-16.0); Mean Corpuscular HGB CONC 32.1 g/dL (32.0-36.0); Mean Corpuscular Hemoglobin 30.6 pg (27.0-31.0); Mean Corpuscular Volume 95.4 fL (78.0-98.0); Mean Platelet Volume 7.6 fL (7.4-10.4); Platelet Count 317 thou/uL (130-400); RBC Distribution Width 13.5 % (11.5-14.5); Red Blood Cell (RBC) Count 4.05 mill/uL (4.20-5.40)
[2021-07-03 09:55] LABS: Anion Gap 12 mmol/L (10-20); BUN (Urea Nitrogen) 7 mg/dL (9.8-20.1); Calc. Creatinine Clearance 73 mL/min (70-130); Calcium 8.7 mg/dL (7.8-10.44); Carbon Dioxide 23 mmol/L (23-31); Chloride 102 mmol/L (98-107); Glucose 112 mg/dL (83-110); Potassium 3.3 mmol/L (3.5-5.1); Sodium 134 mmol/L (136-145)
[2021-07-03 10:07] LABS: Magnesium 1.8 mg/dL (1.6-2.6)
[2021-07-03] MEDS ORDERED: predniSONE 20 MG TAB PO SCH (20:45)
[2021-07-03] MEDS ORDERED: Potassium Chloride 20 MEQ TAB PO SCH (20:45)
[2021-07-03] MEDS ORDERED: Magnesium 2 GM/50 ML 2 GM in Premix Bag 1 BAG IVPB SCH (20:45)
[2021-07-03] MEDS: rOPINIRole HCl 2 MG TAB PO SCH (21:14)
[2021-07-04] MEDS: Sodium Chloride 0.9% 1,000 ML IV SCH (04:00)
[2021-07-04 04:37] LABS: #Lymphocytes 1.4 thou/uL (1.20-3.40); #Monocytes 0.1 thou/uL (0.11-0.59); #Neutrophils 12.8 thou/uL (1.40-6.50); %Basophils 0.1 % (0.0-1.0); %Eosinophils 0.2 % (0.0-10.0); %Lymphocytes 9.7 % (21.0-51.0); %Monocytes 0.6 % (0.0-10.0); %Neutrophils 89.5 % (42.0-75.0); Hemoglobin 12.3 g/dL (12.0-16.0); Mean Corpuscular HGB CONC 33.5 g/dL (32.0-36.0); Mean Corpuscular Hemoglobin 31.7 pg (27.0-31.0); Mean Corpuscular Volume 94.4 fL (78.0-98.0); Mean Platelet Volume 8.1 fL (7.4-10.4); Platelet Count 306 thou/uL (130-400); RBC Distribution Width 13.4 % (11.5-14.5); Red Blood Cell (RBC) Count 3.88 mill/uL (4.20-5.40); White Blood Cell (WBC) Count 14.3 thou/uL (4.8-10.8)
[2021-07-04 04:55] LABS: Anion Gap 10 mmol/L (10-20); BUN (Urea Nitrogen) 8 mg/dL (9.8-20.1); Calc. Creatinine Clearance 75 mL/min (70-130); Calcium 8.5 mg/dL (7.8-10.44); Carbon Dioxide 21 mmol/L (23-31); Chloride 107 mmol/L (98-107); Glucose 177 mg/dL (83-110); Magnesium 2.2 mg/dL (1.6-2.6); Potassium 4.1 mmol/L (3.5-5.1); Sodium 134 mmol/L (136-145)
[2021-07-04] MEDS: cefTRIAXone\\ROCEPHIN 1 GM in Sodium Chloride 0.9% 100 ML IVPB SCH (06:01)
[2021-07-04] MEDS: Acetaminophen 325 MG TAB PO PRN (06:05)
[2021-07-04] MEDS: Azithromycin 500 MG in Sodium Chloride 0.9% 250 ML 250 ML IVPB SCH (06:18)
[2021-07-04] MEDS: Mometasone 100 MCG/Formoterol 5 MCG 120 PUFF INHALER INH SCH (07:08)
[2021-07-04] MEDS: Ipratropium Bromide 2.5 ml Neb NEB SCH ×2 (07:08→12:50)
[2021-07-04] MEDS ORDERED: predniSONE 20 MG TAB PO SCH (08:00)
[2021-07-04] MEDS: DULoxetine 60 MG CAP PO SCH (08:28)
[2021-07-04 12:19] VITALS: BP 106/63; TEMP 97.6
== END 2021-07-04 17:25 | disposition home or self-care (01) | DRG 190 ==
LOC: ERS 03:29 → SUATTDRO 03:29 → ERHOLD 08:33 → 2NO 13:56
PROVIDERS: ADMIT Internal Medicine; ATTEND Internal Medicine
DX: J43.9 Emphysema, unspecified (principal); J18.9 Pneumonia, unspecified organism; J47.1 Bronchiectasis with (acute) exacerbation; R04.2 Hemoptysis; Z20.822 Contact with and (suspected) exposure to COVID-19; K21.9 Gastro-esophageal reflux disease without esophagitis; E78.5 Hyperlipidemia, unspecified; I10 Essential (primary) hypertension; Z95.2 Presence of prosthetic heart valve; Z90.49 Acquired absence of other specified parts of digestive tract; Z88.5 Allergy status to narcotic agent; Z88.8 Allergy status to other drugs, medicaments and biological substances; Z79.82 Long term (current) use of aspirin; Z79.899 Other long term (current) drug therapy; Z79.51 Long term (current) use of inhaled steroids; Z87.891 Personal history of nicotine dependence; Z88.1 Allergy status to other antibiotic agents
CPT/HCPCS: 0240U; 36415; 71045; 71275; 80048; 80053; 83735; 83880; 84443; 85025; 85610; 85730; 86850; 86900; 86901; 93005; 93010; 94640; 94760; 96365; 96367; J0456; J0696; J3475; J3490; J7050; J7512; Q9967

== ENCOUNTER 2021-07-14 15:56 | Emergency (ER) | payer MEDICARE, OTHER ==
[~2021-07-14 15:56] MED LIST: Iopamidol-370 76% 500 ML 1 ML ONE
[2021-07-14 16:37] LABS: #Lymphocytes 1.8 thou/uL (1.20-3.40); #Monocytes 0.1 thou/uL (0.11-0.59); #Neutrophils 12.7 thou/uL (1.40-6.50); %Basophils 0.1 % (0.0-1.0); %Eosinophils 0.3 % (0.0-10.0); %Lymphocytes 12.1 % (21.0-51.0); %Monocytes 0.9 % (0.0-10.0); %Neutrophils 86.6 % (42.0-75.0); Hemoglobin 12.1 g/dL (12.0-16.0); Mean Corpuscular HGB CONC 33.4 g/dL (32.0-36.0); Mean Corpuscular Hemoglobin 31.4 pg (27.0-31.0); Mean Corpuscular Volume 93.9 fL (78.0-98.0); Mean Platelet Volume 6.7 fL (7.4-10.4); Platelet Count 520 thou/uL (130-400); Red Blood Cell (RBC) Count 3.85 mill/uL (4.20-5.40); White Blood Cell (WBC) Count 14.7 thou/uL (4.8-10.8)
[2021-07-14 16:48] LABS: PTT 29.6 sec (22.9-36.1)
[2021-07-14 16:49] LABS: D-Dimer Test 0.71 *mcg/mL (0.27-0.43)
[2021-07-14] MEDS ORDERED: Tranexamic Acid 1,000 MG/10 ML VIAL ONE (16:52)
[2021-07-14] MEDS ORDERED: methylPREDNISolone Sod Succ/PF 125 MG/2 ML VIAL ONE (16:55)
[2021-07-14 17:02] LABS: ALT (SGPT) 9 U/L (8-55); AST (SGOT) 10 U/L (5-34); Albumin 3.4 g/dL (3.4-4.8); Alkaline Phosphatase 90 U/L (40-110); Anion Gap 11 mmol/L (10-20); BUN (Urea Nitrogen) 15 mg/dL (9.8-20.1); Bilirubin, Total 0.3 mg/dL (0.2-1.2); Calc. Creatinine Clearance 0 mL/min (70-130); Calcium 8.7 mg/dL (7.8-10.44); Carbon Dioxide 24 mmol/L (23-31); Chloride 107 mmol/L (98-107); Globulin 3.2 g/dL (2.4-3.5); Glucose 113 mg/dL (83-110); Magnesium 2.1 mg/dL (1.6-2.6); Potassium 3.9 mmol/L (3.5-5.1); Protein, Total 6.6 g/dL (5.8-8.1); Sodium 138 mmol/L (136-145)
== END 2021-07-14 20:40 | disposition home or self-care (01) ==
LOC: ERS 15:56
DX: J44.0 Chronic obstructive pulmonary disease with (acute) lower respiratory infection (principal); J44.1 Chronic obstructive pulmonary disease with (acute) exacerbation; J18.9 Pneumonia, unspecified organism; K21.9 Gastro-esophageal reflux disease without esophagitis; E78.5 Hyperlipidemia, unspecified; Z87.891 Personal history of nicotine dependence; Z79.82 Long term (current) use of aspirin; Z79.899 Other long term (current) drug therapy
CPT/HCPCS: 36415; 71045; 71275; 80053; 83735; 85025; 85379; 85610; 85730; 94640; 96374; J2930; Q9967

== ENCOUNTER 2021-08-08 14:03 | Outpatient (CLI) | payer MEDICARE, OTHER | END 2021-08-08 14:04 | disposition home or self-care (01) | LOC: BICRAD 14:03 | PROVIDERS: ATTEND Internal Medicine Critical Care Medicine | DX: R06.00 Dyspnea, unspecified (principal); R91.8 Other nonspecific abnormal finding of lung field | CPT/HCPCS: 71046 ==

== ENCOUNTER 2021-11-24 17:31 | Emergency (ER) | payer MEDICARE, OTHER ==
[2021-11-24 18:43] LABS: #Basophils 0.1 thou/uL (0.0-0.2); #Eosinphils 0.5 thou/uL (0.0-0.7); #Lymphocytes 3.1 thou/uL (1.20-3.40); #Monocytes 0.7 thou/uL (0.11-0.59); %Basophils 0.8 % (0.0-1.0); %Eosinophils 4.9 % (0.0-10.0); %Lymphocytes 33.1 % (21.0-51.0); %Monocytes 7.5 % (0.0-10.0); %Neutrophils 53.7 % (42.0-75.0); Hemoglobin 10.9 g/dL (12.0-16.0); Mean Corpuscular HGB CONC 31.8 g/dL (32.0-36.0); Mean Corpuscular Hemoglobin 27.2 pg (27.0-31.0); Mean Corpuscular Volume 85.6 fL (78.0-98.0); Mean Platelet Volume 6.6 fL (7.4-10.4); Platelet Count 398 thou/uL (130-400); RBC Distribution Width 16.2 % (11.5-14.5); Red Blood Cell (RBC) Count 4.02 mill/uL (4.20-5.40); White Blood Cell (WBC) Count 9.3 thou/uL (4.8-10.8)
[2021-11-24 19:04] LABS: ALT (SGPT) 9 U/L (8-55); AST (SGOT) 16 U/L (5-34); Albumin 3.3 g/dL (3.4-4.8); Alkaline Phosphatase 90 U/L (40-110); Anion Gap 14 mmol/L (10-20); BUN (Urea Nitrogen) 14 mg/dL (9.8-20.1); Bilirubin, Total 0.2 mg/dL (0.2-1.2); Calc. Creatinine Clearance 0 mL/min (70-130); Calcium 8.6 mg/dL (7.8-10.44); Carbon Dioxide 23 mmol/L (23-31); Chloride 108 mmol/L (98-107); Globulin 3.1 g/dL (2.4-3.5); Glucose 79 mg/dL (83-110); Protein, Total 6.4 g/dL (5.8-8.1); Sodium 141 mmol/L (136-145)
[2021-11-24 19:59] LABS: Bilirubin Negative (Negative); Blood, Urine Negative (Negative); Clarity Clear (Clear); Glucose, Urine (Dipstick) Normal (Negative); Ketone, Urine Trace mg/dL (Negative); Leukocyte Negative Leu/uL (Negative); Nitrite Negative (Negative); Protein, Urine (Dipstick) 10 mg/dL (Neg-Trace); Urobilinogen 3 mg/dL (Less than 2); pH, Urine 5.5 (5.0-9.0)
[2021-11-24] MEDS ORDERED: Acetaminophen 500 MG TAB ONE (20:11)
[2021-11-24] MEDS ORDERED: Morphine 4 MG/ML VIAL ONE (21:39)
[2021-11-24] MEDS ORDERED: Ondansetron PF 4 MG/2 ML Vial ONE (21:39)
== END 2021-11-24 22:45 | disposition home or self-care (01) ==
LOC: ERS 17:31
DX: S80.02XA Contusion of left knee, initial encounter (principal); R00.0 Tachycardia, unspecified; W06.XXXA Fall from bed, initial encounter; K21.9 Gastro-esophageal reflux disease without esophagitis; E78.5 Hyperlipidemia, unspecified; J44.9 Chronic obstructive pulmonary disease, unspecified; Z87.891 Personal history of nicotine dependence; Z79.82 Long term (current) use of aspirin
CPT/HCPCS: 36415; 51702; 71045; 80053; 81003; 83605; 84484; 85025; 96374; 96375; J2270; J2405

== ENCOUNTER 2021-12-25 10:56 | Outpatient (CLI) | payer MEDICARE, OTHER | END 2021-12-25 10:57 | disposition home or self-care (01) | LOC: RAD 10:56 | PROVIDERS: ATTEND Internal Medicine Critical Care Medicine | DX: R06.00 Dyspnea, unspecified (principal); R91.8 Other nonspecific abnormal finding of lung field; J98.4 Other disorders of lung | CPT/HCPCS: 71046 ==

== ENCOUNTER 2022-04-14 13:04 | Outpatient (CLI) | payer MEDICARE, OTHER | END 2022-04-14 13:05 | disposition home or self-care (01) | LOC: RAD 13:04 | PROVIDERS: ATTEND Internal Medicine Critical Care Medicine | DX: R06.00 Dyspnea, unspecified (principal); J84.9 Interstitial pulmonary disease, unspecified | CPT/HCPCS: 71046 ==

== ENCOUNTER 2022-08-15 10:18 | Outpatient (CLI) | payer MEDICARE, OTHER | END 2022-08-15 10:19 | disposition home or self-care (01) | LOC: BICMAMMO 10:18 | PROVIDERS: ATTEND Registered Nurse | DX: M85.89 Other specified disorders of bone density and structure, multiple sites (principal); M81.0 Age-related osteoporosis without current pathological fracture; Z78.0 Asymptomatic menopausal state | CPT/HCPCS: 77080 ==

== ENCOUNTER 2022-11-05 07:56 | Day surgery (SDC) | payer MEDICARE, OTHER ==
[2022-11-04 14:28] VITALS: BMI 22.4
[2022-11-05] MEDS ORDERED: PROPOFOL 200 MG/20 ML VIAL ONE (09:45)
== END 2022-11-05 11:37 | disposition home or self-care (01) ==
LOC: SDC 07:56
PROVIDERS: ATTEND Internal Medicine Gastroenterology
PROC: 0DBK8ZX Excision of Ascending Colon, Via Natural or Artificial Opening Endoscopic, Diagnostic (ICD-10-PCS; principal; 2022-11-05)
PROC: 0DBN8ZX Excision of Sigmoid Colon, Via Natural or Artificial Opening Endoscopic, Diagnostic (ICD-10-PCS; 2022-11-05)
PROC: 0DBM8ZX Excision of Descending Colon, Via Natural or Artificial Opening Endoscopic, Diagnostic (ICD-10-PCS; 2022-11-05)
DX: Z12.11 Encounter for screening for malignant neoplasm of colon (principal); D12.2 Benign neoplasm of ascending colon; D12.4 Benign neoplasm of descending colon; D12.5 Benign neoplasm of sigmoid colon; K57.30 Diverticulosis of large intestine without perforation or abscess without bleeding; J44.9 Chronic obstructive pulmonary disease, unspecified; Z86.010 Personal history of colon polyps; Z79.82 Long term (current) use of aspirin; Z79.899 Other long term (current) drug therapy; Z88.0 Allergy status to penicillin; Z88.5 Allergy status to narcotic agent; Z88.8 Allergy status to other drugs, medicaments and biological substances
CPT/HCPCS: 88305; C1776

== ENCOUNTER 2022-12-22 12:53 | Outpatient (CLI) | payer MEDICARE, OTHER | END 2022-12-22 12:54 | disposition home or self-care (01) | LOC: RAD 12:53 | PROVIDERS: ATTEND Internal Medicine Critical Care Medicine | DX: R06.00 Dyspnea, unspecified (principal); J84.10 Pulmonary fibrosis, unspecified; I72.8 Aneurysm of other specified arteries | CPT/HCPCS: 71046 ==

== ENCOUNTER 2023-04-06 14:13 | Outpatient (CLI) | payer MEDICARE, OTHER | END 2023-04-06 14:14 | disposition home or self-care (01) | LOC: RAD 14:13 | PROVIDERS: ATTEND Registered Nurse | DX: M25.552 Pain in left hip (principal) ==

== ENCOUNTER 2023-08-02 17:00 | Outpatient (CLI) | payer MEDICARE, OTHER | END 2023-08-02 17:01 | disposition home or self-care (01) | LOC: SLEEPLAB 17:00 | PROVIDERS: ATTEND Internal Medicine Critical Care Medicine | DX: G47.33 Obstructive sleep apnea (adult) (pediatric) (principal); G47.61 Periodic limb movement disorder; R53.83 Other fatigue; R06.83 Snoring | CPT/HCPCS: 95811 ==

== ENCOUNTER 2023-08-06 11:23 | Outpatient (CLI) | payer MEDICARE, OTHER | END 2023-08-06 11:24 | disposition home or self-care (01) | LOC: SCSMRI 11:23 | PROVIDERS: ATTEND Internal Medicine Hematology & Oncology | DX: M89.9 Disorder of bone, unspecified (principal); C41.4 Malignant neoplasm of pelvic bones, sacrum and coccyx; R93.7 Abnormal findings on diagnostic imaging of other parts of musculoskeletal system; S32.502A Unspecified fracture of left pubis, initial encounter for closed fracture; M47.816 Spondylosis without myelopathy or radiculopathy, lumbar region | CPT/HCPCS: 72158; 72197 ==

== ENCOUNTER 2023-08-13 09:26 | Outpatient (CLI) | payer MEDICARE, OTHER | END 2023-08-13 09:27 | disposition home or self-care (01) | LOC: BICMAMMO 09:26 | PROVIDERS: ATTEND Internal Medicine Hematology & Oncology | DX: Z12.31 Encounter for screening mammogram for malignant neoplasm of breast (principal); Z80.3 Family history of malignant neoplasm of breast | CPT/HCPCS: 77063; 77067 ==

== ENCOUNTER 2024-07-10 22:08 | Inpatient (IN) | payer MEDICARE, OTHER ==
[2024-07-10 22:35] LABS: #Basophils 0.03 10x3/uL (0.0-0.2); %Basophils 0.3 % (0.0-1.0); %Lymphocytes 21.8 % (21.0-51.0); %Monocytes 2.5 % (0.0-10.0); Hematocrit 35.9 % (36.0-47.0); Hemoglobin 11.7 g/dL (12.0-16.0); Mean Corpuscular HGB CONC 32.6 g/dL (32.0-36.0); Mean Corpuscular Hemoglobin 29.2 pg (27.0-31.0); Mean Corpuscular Volume 89.5 fL (78.0-98.0); Mean Platelet Volume 9.5 fL (7.4-10.4); Platelet Count 282 10x3/uL (130-400); RBC Distribution Width 17.3 % (11.5-14.5); Red Blood Cell (RBC) Count 4.01 mill/uL (4.20-5.40)
[2024-07-10] MEDS ORDERED: cefTRIAXone (ROCEPHIN) 2 GM VIAL ONE (22:41)
[2024-07-10] MEDS ORDERED: Sodium Chloride 0.9% 100 ML ONE (22:41)
[2024-07-10 22:53] LABS: ALT (SGPT) 7 U/L (8-55); AST (SGOT) 17 U/L (5-34); Albumin 2.7 g/dL (3.4-4.8); Alkaline Phosphatase 83 U/L (40-110); Anion Gap 13 mmol/L (10-20); BUN (Urea Nitrogen) 13 mg/dL (9.8-20.1); Bilirubin, Total 0.2 mg/dL (0.2-1.2); Calc. Creatinine Clearance 0 mL/min (70-130); Calcium 7.7 mg/dL (7.8-10.44); Carbon Dioxide 20 mmol/L (23-31); Chloride 107 mmol/L (98-107); Estimated GFR 90; Globulin 3.9 g/dL (2.4-3.5); Glucose 114 mg/dL (83-110); Magnesium 1.7 mg/dL (1.6-2.6); Potassium 3.4 mmol/L (3.5-5.1); Protein, Total 6.6 g/dL (5.8-8.1); Sodium 137 mmol/L (136-145)
[2024-07-10 22:57] LABS: Troponin I Less than 0.010 ng/mL (< 0.028)
[2024-07-10 23:02] LABS: INR-International Normal Ratio 1.1; Prothrombin Time 14.4 sec (12.0-14.7)
[2024-07-10 23:03] LABS: PTT 43.5 sec (22.9-36.1)
[2024-07-10 23:07] LABS: SARS-CoV-2 E Target Positive; SARS-CoV-2 N2 Target Positive; SARS-CoV-2 NAA Rapid Test DETECTED (NotDetected); SARS-CoV-2 RdRP gene Positive
[2024-07-10] MEDS ORDERED: Ipratropium/Albuterol 3 ML NEB ONE (23:23)
[2024-07-10 23:27] LABS: Actual Bicarbonate (HCO3v) 20.1 mEq/L (22-28); Calcium, Ionized (venous) 1.03 mmol/L (1.16-1.32); Chloride (VBG) 107 mmol/L (98-106); Hematocrit-VBG 36 % (36.0-47.0); Hemoglobin (Hb) 12.4 g/dL (11.7-16.1); Potassium (VBG) 3.34 mmol/L (3.70-5.30); Sodium 137 mmol/L (133-146); pH (venous) 7.301 (7.32-7.43)
[2024-07-10] MEDS ORDERED: Azithromycin 500 MG VIAL ONE (23:40)
[2024-07-11 01:46] LABS: Lactic Acid 1.6 mmol/L (0.5-2.2)
[2024-07-11] MEDS ORDERED: Ondansetron PF 4 MG/2 ML Vial IVP PRN (01:57)
[2024-07-11 05:07] LABS: Hematocrit 36.4 % (36.0-47.0); Hemoglobin 11.8 g/dL (12.0-16.0); Mean Corpuscular HGB CONC 32.4 g/dL (32.0-36.0); Mean Corpuscular Hemoglobin 28.7 pg (27.0-31.0); Mean Corpuscular Volume 88.6 fL (78.0-98.0); Mean Platelet Volume 10.2 fL (7.4-10.4); Platelet Count 275 10x3/uL (130-400); RBC Distribution Width 17.5 % (11.5-14.5); Red Blood Cell (RBC) Count 4.11 mill/uL (4.20-5.40)
[2024-07-11 05:21] LABS: Anion Gap 15 mmol/L (10-20); BUN (Urea Nitrogen) 12 mg/dL (9.8-20.1); Calc. Creatinine Clearance 47 mL/min (70-130); Carbon Dioxide 20 mmol/L (23-31); Chloride 107 mmol/L (98-107); Estimated GFR 84; Glucose 242 mg/dL (83-110); Magnesium 1.7 mg/dL (1.6-2.6); Potassium 3.6 mmol/L (3.5-5.1); Sodium 138 mmol/L (136-145)
[2024-07-11 05:27] LABS: Anisocytosis SLIGHT = 6-15 cells HPF (0-5); Band 13 % (5-11); Elliptocytes SLIGHT = 2-5 cells HPF (0-1); Large Platelets 5.1 % (0-5); Lymphocytes 5 % (21-51); Myelocyte 1 % (0-0); Neutrophil 81 % (42-75); Nucleated RBC (Manual Ct) 1 % (0); Platelet Adequacy Comment Platelets Normal; Polychromasia SLIGHT = 2-3 cells HPF (0-2); Target Cells SLIGHT = 2-5 cells HPF (0-1)
[2024-07-11] MEDS: Potassium Chloride 20 MEQ TAB PO SCH (05:56)
[2024-07-11] MEDS: methylPREDNISolone Sod Succ 40 MG VIAL IVP SCH (05:56)
[2024-07-11] MEDS: Albuterol 200 PUFF (6.7GM INHALER) INH SCH (06:11)
[2024-07-11] MEDS: Mometasone 200 MCG/Formoterol 5 MCG 120 PUFF INHALER INH SCH (06:48)
[2024-07-11] MEDS ORDERED: Albuterol 200 PUFF (6.7GM INHALER) INH PRN (07:35)
[2024-07-11] MEDS: NIRMATRELVIR 150 MG (X 2)/RITONAVIR 100 MG TAB PO SCH (10:40)
[2024-07-11] MEDS: Acetaminophen 325 MG TAB PO PRN (10:41)
[2024-07-11] MEDS: Cyclobenzaprine 10 MG TAB PO SCH (17:59)
[2024-07-11] MEDS ORDERED: Doxycycline 100 MG CAP PO SCH (21:00)
[2024-07-11] MEDS: rOPINIRole HCl 2 MG TAB PO SCH (21:04)
[2024-07-11] MEDS: Amitriptyline HCl 25 MG TAB PO SCH (21:04)
[2024-07-11] MEDS: dilTIAZem CD 180 MG CAP PO SCH (21:04)
[2024-07-11] MEDS: DULoxetine 60 MG CAP PO SCH (21:04)
[2024-07-11] MEDS ORDERED: Benzonatate 100 MG CAP PO PRN (21:44)
[2024-07-11] MEDS: Cyclobenzaprine 10 MG TAB PO PRN (22:02)
[2024-07-11] MEDS: Benzocaine/Menthol 1 LOZ LOZ PO PRN (22:02)
[2024-07-12 05:07] LABS: #Basophils Less than 0.03 10x3/uL (0.0-0.2); #Eosinphils Less than 0.03 10x3/uL (0.0-0.7); %Basophils 0.1 % (0.0-1.0); %Lymphocytes 18.6 % (21.0-51.0); %Neutrophils 78.7 % (42.0-75.0); Hematocrit 37.5 % (36.0-47.0); Mean Corpuscular Hemoglobin 28.7 pg (27.0-31.0); Mean Corpuscular Volume 89.7 fL (78.0-98.0); Platelet Count 284 10x3/uL (130-400); RBC Distribution Width 17.2 % (11.5-14.5); Red Blood Cell (RBC) Count 4.18 mill/uL (4.20-5.40)
[2024-07-12 05:15] LABS: Anion Gap 12 mmol/L (10-20); BUN (Urea Nitrogen) 16 mg/dL (9.8-20.1); Calc. Creatinine Clearance 54 mL/min (70-130); Calcium 8.7 mg/dL (7.8-10.44); Carbon Dioxide 25 mmol/L (23-31); Chloride 106 mmol/L (98-107); Estimated GFR 91; Glucose 147 mg/dL (83-110); Magnesium 1.8 mg/dL (1.6-2.6); Potassium 4.8 mmol/L (3.5-5.1); Sodium 138 mmol/L (136-145)
[2024-07-12] MEDS: Pantoprazole DR 40 MG TAB PO SCH (09:17)
[2024-07-12] MEDS: Sodium Chloride 0.9% 250 ML IV SCH (13:30)
[2024-07-12] MEDS: Sodium Chloride 0.9% 500 ML IV SCH (14:55)
[2024-07-12] MEDS: Midodrine HCl 5 MG TAB PO SCH ×2 (16:01→20:24)
[2024-07-12] MEDS: Melatonin 3 MG TAB PO PRN (20:51)
[2024-07-13] MEDS: Albumin 25% 25 GM (100 mL) BOT IVPB SCH (00:18)
[2024-07-13 05:01] LABS: #Basophils Less than 0.03 10x3/uL (0.0-0.2); #Eosinphils Less than 0.03 10x3/uL (0.0-0.7); %Lymphocytes 13.4 % (21.0-51.0); %Monocytes 1.4 % (0.0-10.0); %Neutrophils 84.7 % (42.0-75.0); Hematocrit 34.2 % (36.0-47.0); Hemoglobin 10.8 g/dL (12.0-16.0); Mean Corpuscular HGB CONC 31.6 g/dL (32.0-36.0); Mean Corpuscular Hemoglobin 28.6 pg (27.0-31.0); Mean Corpuscular Volume 90.5 fL (78.0-98.0); Mean Platelet Volume 10.6 fL (7.4-10.4); Platelet Count 286 10x3/uL (130-400); RBC Distribution Width 17.6 % (11.5-14.5); Red Blood Cell (RBC) Count 3.78 mill/uL (4.20-5.40)
[2024-07-13 05:23] LABS: Anion Gap 12 mmol/L (10-20); BUN (Urea Nitrogen) 22 mg/dL (9.8-20.1); Calc. Creatinine Clearance 50 mL/min (70-130); Calcium 8.5 mg/dL (7.8-10.44); Carbon Dioxide 20 mmol/L (23-31); Chloride 109 mmol/L (98-107); Estimated GFR 90; Glucose 139 mg/dL (83-110); Potassium 4.8 mmol/L (3.5-5.1); Sodium 136 mmol/L (136-145)
[2024-07-13 06:32] VITALS: BMI 20.2
[2024-07-13] MEDS ORDERED: Ipratropium/Albuterol 3 ML NEB NEB PRN (14:30)
[2024-07-13] MEDS: Ipratropium Bromide 2.5 ml Neb NEB SCH (18:44)
[2024-07-13] MEDS ORDERED: Non-Formulary Item 1 EACH (Fluticasone/Vilanterol [Breo Ellipta 200-25 Mcg Inhalr] 1 EACH INH SCH (21:00)
[2024-07-14] MEDS: Aspirin 81 mg Enteric Coated Tablet PO SCH (08:22)
[2024-07-14] MEDS: Nystatin 500,000 UNITS/5 ML UDCUP SSW SCH (17:10)
[2024-07-15 06:52] LABS: Anion Gap 17 mmol/L (10-20); BUN (Urea Nitrogen) 27 mg/dL (9.8-20.1); Calc. Creatinine Clearance 45 mL/min (70-130); Calcium 9.2 mg/dL (7.8-10.44); Carbon Dioxide 25 mmol/L (23-31); Chloride 100 mmol/L (98-107); Estimated GFR 80; Glucose 110 mg/dL (83-110); Magnesium 1.8 mg/dL (1.6-2.6); Potassium 3.8 mmol/L (3.5-5.1); Sodium 138 mmol/L (136-145)
[2024-07-15 07:52] VITALS: BP 101/63; TEMP 97.8
[2024-07-15] MEDS: methylPREDNISolone Sod Succ 40 MG VIAL IVP SCH (08:35)
== END 2024-07-15 10:58 | disposition home or self-care (01) | DRG 178 ==
LOC: ERS 22:08 → 2NO 07-11 01:07 → OBSVTOIN 07-11 11:04 → T4-A 07-13 14:23
PROVIDERS: ADMIT Internal Medicine; ATTEND Hospitalist
PROC: 8E0ZXY6 Isolation (ICD-10-PCS; principal; 2024-07-10)
PROC: 30233J1 Transfusion of Nonautologous Serum Albumin into Peripheral Vein, Percutaneous Approach (ICD-10-PCS; 2024-07-12)
DX: U07.1 COVID-19 (principal); J44.1 Chronic obstructive pulmonary disease with (acute) exacerbation; J96.11 Chronic respiratory failure with hypoxia; I10 Essential (primary) hypertension; E78.5 Hyperlipidemia, unspecified; G25.81 Restless legs syndrome; Z88.5 Allergy status to narcotic agent; Z88.1 Allergy status to other antibiotic agents; Z79.82 Long term (current) use of aspirin; Z79.899 Other long term (current) drug therapy; Z95.2 Presence of prosthetic heart valve; Z90.49 Acquired absence of other specified parts of digestive tract; Z90.89 Acquired absence of other organs; Z98.890 Other specified postprocedural states; Z87.891 Personal history of nicotine dependence
CPT/HCPCS: 36415; 71045; 80048; 80053; 82805; 83605; 83735; 83880; 84484; 85025; 85610; 85730; 87040; 93005; 94640; 94760; 96374; 96375; G0378; J0456; J0696; J2919; J7030; J7620; J7644; J8499; P9047; U0002

== ENCOUNTER 2024-08-22 11:13 | Inpatient (IN) | payer MEDICARE, OTHER ==
[2024-08-22] MEDS ORDERED: methylPREDNISolone Sod Succ/PF 125 MG/2 ML VIAL ONE (12:31)
[2024-08-22 13:13] LABS: Bacteria/HPF None Seen HPF (None Seen); Bilirubin Negative (Negative); Blood, Urine 2+ (Negative); CAUTI Indications for Culture Alt mental st,lethar; Clarity Clear (Clear); Glucose, Urine (Dipstick) Normal (Negative); Ketone, Urine Negative (Negative); Leukocyte Negative Leu/uL (Negative); Nitrite Negative (Negative); Protein, Urine (Dipstick) Negative (Neg-Trace); Specific Gravity, Urine 1.012 (1.002-1.036); Squamous Epithelial 0-3 HPF (0-3); Urobilinogen Normal mg/dL (Less than 2); WBC/HPF 0-3 HPF (0-3); pH, Urine 5.5 (5.0-9.0)
[2024-08-22 13:16] LABS: Urine Culture Reflex No No
[2024-08-22] MEDS ORDERED: Ipratropium/Albuterol 3 ML NEB ONE ×2 (13:28→18:31)
[2024-08-22 13:45] LABS: Troponin I 0.011 ng/mL (< 0.028)
[2024-08-22 13:45] LABS: ALT (SGPT) 5 U/L (8-55); AST (SGOT) 13 U/L (5-34); Albumin 3.1 g/dL (3.4-4.8); Alkaline Phosphatase 117 U/L (40-110); Anion Gap 11 mmol/L (10-20); BUN (Urea Nitrogen) 12 mg/dL (9.8-20.1); Bilirubin, Total 0.3 mg/dL (0.2-1.2); Calc. Creatinine Clearance 0 mL/min (70-130); Calcium 9.5 mg/dL (7.8-10.44); Carbon Dioxide 22 mmol/L (23-31); Chloride 110 mmol/L (98-107); Estimated GFR 91; Globulin 4.5 g/dL (2.4-3.5); Glucose 69 mg/dL (83-110); Magnesium 1.9 mg/dL (1.6-2.6); Protein, Total 7.6 g/dL (5.8-8.1); Sodium 139 mmol/L (136-145)
[2024-08-22] MEDS ORDERED: Iopamidol-370 76% 500 ML MDV (1 ML CHARGE) ONE (15:18)
[2024-08-22 15:25] LABS: #Basophils 0.06 10x3/uL (0.0-0.2); %Basophils 0.3 % (0.0-1.0); %Eosinophils 0.3 % (0.0-10.0); %Lymphocytes 6.6 % (21.0-51.0); %Monocytes 0.4 % (0.0-10.0); %Neutrophils 91.8 % (42.0-75.0); Hematocrit 35.4 % (36.0-47.0); Hemoglobin 11.4 g/dL (12.0-16.0); Mean Corpuscular HGB CONC 32.2 g/dL (32.0-36.0); Mean Corpuscular Hemoglobin 29.2 pg (27.0-31.0); Mean Corpuscular Volume 90.8 fL (78.0-98.0); Mean Platelet Volume 9.1 fL (7.4-10.4); Platelet Count 407 10x3/uL (130-400); RBC Distribution Width 16.8 % (11.5-14.5)
[2024-08-22] MEDS ORDERED: Vancomycin 1 GM/200 ML (FROZEN) BAG ONE (15:47)
[2024-08-22 15:54] LABS: Actual Bicarbonate (HCO3v) 18.1 mEq/L (22-28); Analyzer IN Cardio ER; Base Excess -7.2 mEq/L (-2.0 to +3.0); Calcium, Ionized (venous) 1.15 mmol/L (1.16-1.32); Chloride (VBG) 107 mmol/L (98-106); Hematocrit-VBG 36 % (36.0-47.0); Hemoglobin (Hb) 12.2 g/dL (11.7-16.1); Potassium (VBG) 3.92 mmol/L (3.70-5.30); Sodium 138 mmol/L (133-146); pH (venous) 7.321 (7.32-7.43)
[2024-08-22] MEDS ORDERED: Ondansetron ODT 4 MG TAB PO PRN (17:15)
[2024-08-22] MEDS ORDERED: Ondansetron PF 4 MG/2 ML Vial IVP PRN (17:15)
[2024-08-22] MEDS ORDERED: Acetaminophen 650 MG Suppository PR PRN (17:15)
[2024-08-22] MEDS ORDERED: Acetaminophen 325 MG TAB PO PRN (17:15)
[2024-08-22] MEDS ORDERED: Ipratropium/Albuterol 3 ML NEB NEB PRN (17:16)
[2024-08-22] MEDS ORDERED: cefTRIAXone (ROCEPHIN) 2 GM VIAL ONE (17:33)
[2024-08-22] MEDS ORDERED: Sodium Chloride 0.9% 100 ML ONE (17:33)
[2024-08-22] MEDS: Ipratropium/Albuterol 3 ML NEB NEB SCH (18:38)
[2024-08-22 23:48] VITALS: BMI 21.4
[2024-08-23] MEDS: rOPINIRole HCl 2 MG TAB PO SCH (00:12)
[2024-08-23 04:41] LABS: #Basophils Less than 0.03 10x3/uL (0.0-0.2); #Eosinphils Less than 0.03 10x3/uL (0.0-0.7); %Basophils 0.1 % (0.0-1.0); %Lymphocytes 8.2 % (21.0-51.0); %Monocytes 0.7 % (0.0-10.0); %Neutrophils 90.1 % (42.0-75.0); Hematocrit 31.3 % (36.0-47.0); Hemoglobin 10.5 g/dL (12.0-16.0); Mean Corpuscular HGB CONC 33.5 g/dL (32.0-36.0); Mean Corpuscular Volume 86.5 fL (78.0-98.0); Platelet Count 182 10x3/uL (130-400); RBC Distribution Width 16.6 % (11.5-14.5); Red Blood Cell (RBC) Count 3.62 mill/uL (4.20-5.40); Vancomycin, Random 6.2 ug/mL (See Comment)
[2024-08-23] MEDS ORDERED: Cefepime 2 GM VIAL ONE (06:07)
[2024-08-23] MEDS ORDERED: Sodium Chloride 0.9% 100 ML ONE (06:07)
[2024-08-23] MEDS: Cefepime 2 GM in Sodium Chloride 0.9% 100 ML IVPB SCH (06:14)
[2024-08-23] MEDS ORDERED: Ipratropium/Albuterol 3 ML NEB ONE ×3 (07:48→14:27)
[2024-08-23 07:54] LABS: BUN (Urea Nitrogen) 12 mg/dL (9.8-20.1); Calc. Creatinine Clearance 56 mL/min (70-130); Estimated GFR 91
[2024-08-23 08:02] LABS: Calcium 8.8 mg/dL (7.8-10.44)
[2024-08-23 08:04] LABS: Anion Gap 16 mmol/L (10-20)
[2024-08-23] MEDS ORDERED: methylPREDNISolone Sod Succ 40 MG VIAL ONE (08:41)
[2024-08-23] MEDS ORDERED: Enoxaparin 40 MG (0.4 mL) SYRINGE ONE (08:41)
[2024-08-23 08:43] LABS: Carbon Dioxide 20 mmol/L (23-31); Chloride 109 mmol/L (98-107); Glucose 152 mg/dL (83-110); Sodium 141 mmol/L (136-145)
[2024-08-23] MEDS: methylPREDNISolone Sod Succ 40 MG VIAL IVP SCH (10:08)
[2024-08-23] MEDS: Enoxaparin 40 MG (0.4 mL) SYRINGE SC SCH (10:08)
[2024-08-23] MEDS ORDERED: VANCOMYCIN IVPB PRN (13:23)
[2024-08-23] MEDS ORDERED: Vancomycin (BATCH) 1.25 GM in Premix 1 BAG IVPB SCH (15:00)
[2024-08-23] MEDS: Vancomycin (BATCH) 1.5 GM in Premix 1 BAG IVPB SCH ×2 (17:34→18:38)
[2024-08-24] MEDS: rOPINIRole HCl 2 MG TAB PO SCH ×2 (04:04→22:04)
[2024-08-24] MEDS: Aspirin 81 mg Enteric Coated Tablet PO SCH (09:19)
[2024-08-24] MEDS: Pantoprazole DR 40 MG TAB PO SCH (09:19)
[2024-08-24] MEDS: Mometasone 200 MCG/Formoterol 5 MCG 120 PUFF INHALER INH SCH (18:53)
[2024-08-24] MEDS ORDERED: Non-Formulary Item 1 EACH (Umeclidinium Bromide [Incruse Ellipta] 62.5 MCG Blst.W.Dev) IH SCH (21:00)
[2024-08-24] MEDS: Amitriptyline HCl 25 MG TAB PO SCH (22:04)
[2024-08-24] MEDS: DULoxetine 60 MG CAP PO SCH (22:04)
[2024-08-25] MEDS: FLU (Fluad Triv) TS24-25 (65UP)/MF59C/PF 45 MCG/0.5 ML Syringe IM ONE (09:30)
[2024-08-25 12:25] VITALS: BP 124/64; TEMP 98.4
== END 2024-08-25 13:30 | disposition home or self-care (01) | DRG 189 ==
LOC: ERS 11:13 → ERHOLD 17:28 → 2NO 08-23 17:21
PROVIDERS: ADMIT Student in an Organized Health Care Education/Training Program; ATTEND Internal Medicine
DX: J96.21 Acute and chronic respiratory failure with hypoxia (principal); J44.1 Chronic obstructive pulmonary disease with (acute) exacerbation; R91.1 Solitary pulmonary nodule; K21.9 Gastro-esophageal reflux disease without esophagitis; Z88.8 Allergy status to other drugs, medicaments and biological substances; Z90.89 Acquired absence of other organs; Z98.890 Other specified postprocedural states; E78.5 Hyperlipidemia, unspecified; Z90.49 Acquired absence of other specified parts of digestive tract; Z87.891 Personal history of nicotine dependence; Z88.1 Allergy status to other antibiotic agents; Z79.899 Other long term (current) drug therapy; D64.9 Anemia, unspecified
CPT/HCPCS: 36415; 71045; 71275; 80048; 80053; 80202; 81001; 82565; 82805; 83605; 83735; 83880; 84484; 85025; 85379; 87040; 87086; 87631; 93005; 94640; J0692; J0696; J1650; J2919; J3370; J3370-JW; J7620; Q9967